=== PATIENT | male | born 1965 | race Caucasian/White ===

== ENCOUNTER 2023-11-08 15:10 | Inpatient (IN) | payer MEDICAID, OTHER ==
[~2023-11-08] VITALS: Ht 185.4 cm; Wt 92.4 kg
[~2023-11-08 15:10] MED LIST: etomidate 2mg/ml inj. ONE; rocuronium 10mg/ml inj IV ONE
[2023-11-08] MEDS ORDERED: potassium Cl 20 mEq SR tablet PO PRN (17:00)
[2023-11-08] MEDS ORDERED: magnesium sulf-water 4G/100mL 100 ML IV PRN (17:00)
[2023-11-08] MEDS ORDERED: potassium Cl 40MEQ/1/2NS 520ml 520 ML IV PRN (17:00)
[2023-11-08] MEDS ORDERED: magnesium Cl slow-release 64mg tablet PO PRN (17:00)
[2023-11-08] MEDS ORDERED: magnesium hydroxide 30ml (MOM) UD suspension PO PRN (17:00)
[2023-11-08] MEDS ORDERED: mag hydrox/Alum hydrox/simeth 30ml oral suspension PO PRN (17:00)
[2023-11-08] MEDS ORDERED: magnesium sulf-water 2g/50mL 50 ML IV PRN (17:00)
[2023-11-08] MEDS ORDERED: acetaminophen 325mg tablet PO PRN (17:00)
[2023-11-08] MEDS ORDERED: GABA300C PO ×2 (17:15→17:19)
[2023-11-08] MEDS ORDERED: FLO0.4C PO (17:15)
[2023-11-08] MEDS ORDERED: GABA600T PO (17:19)
[2023-11-08 17:24] LABS: POTASSIUM 4.1 MMOL/L (3.5-5.1)
[2023-11-08] MEDS: heparin 10,000 units/1 ML INJ IV ONE (17:41)
[2023-11-08] MEDS: heparin 25,000 UNIT/250ml bag 250 ML IV PRN (17:41)
[2023-11-08] MEDS: vancomycin/NS 1 GM ADD-VANTAGE 250 ML X 1 DOSE IV ONE (18:10)
[2023-11-08 18:51] LABS: ABG BASE EXCESS 3.7 mmol/L (-2.0-3.0); ABG HCO3 28.2 mmol/L (21.0-28.0); ABG OXYGEN SATURATION 86.4 % (94.0-98.0); ABG PCO2 (T) 41.7 mmHg (35.0-48.0); ABG PH (T) 7.445 (7.350-7.450); ABG PO2 (T) 52.9 mmHg (83.0-108.0); ALLEN'S TEST POSITIVE; FCOHb 0.3 % (0.5-1.5); FHHb 13.5 % (0.0-5.0); FLOW 5 L/min; FMetHb 0.3 % (0.0-1.5); FO2Hb 85.9 % (94.0-98.0); MODE NASAL CANNULA; PATIENT TEMPERATURE 36.7; TOTAL HEMOGLOBIN 9.3 G/dl (13.5-17.5)
[2023-11-08] MEDS: MESSAGE TO NURSING IV ONE ×2 (19:00→21:40)
[2023-11-08 19:22] VITALS: PULSE 96; RESP 22; O2SAT 98
[2023-11-08 19:27] VITALS: PULSE 96; RESP 22; O2SAT 98
[2023-11-08] MEDS: ipratropium/albuterol 3ml nebule NEB PRN (19:28)
[2023-11-08 19:30] VITALS: PULSE 98; RESP 21
[2023-11-08 19:37] VITALS: BP 116/70; PULSE 91; RESP 22; TEMP 98.8; O2SAT 96
[2023-11-08] MEDS: normal saline 1000ml 1,000 ML IV SCH (19:40)
[2023-11-08] MEDS ORDERED: diphenhydrAMINE 25 MG/10 ML UD oral solution PO ONE (20:00)
[2023-11-08] MEDS: diphenhydrAMINE 25mg capsule PO ONE (20:29)
[2023-11-08 21:00] LABS: ALANINE AMINOTRANSFERASE 391 U/L (12-78); ALBUMIN 1.8 G/DL (3.4-5.0); ALBUMIN/GLOBULIN RATIO 0.5 (1.1-1.5); ALKALINE PHOSPHATASE 127 IU/L (46-116); ASPARTATE AMINO TRANSFERASE 396 U/L (10-37); BILIRUBIN,TOTAL 0.5 MG/DL (0.1-1.0); BLOOD UREA NITROGEN 17 MG/DL (7-18); BUN/CREATININE RATIO 25.4 (10.0-20.0); CALCIUM 8.5 MG/DL (8.5-10.1); CREATININE 0.67 MG/DL (0.60-1.10); GLUCOSE 247 MG/DL (70-104); TOTAL CARBON DIOXIDE 24.4 MMOL/L (24-32); TOTAL PROTEIN 5.5 G/DL (6.4-8.2); eCRCL 133 ML/MIN; eGFR > 90 ML/MIN
[2023-11-08 21:14] LABS: ANION GAP 12 (8-16); CHLORIDE 99 MMOL/L (99-107); SODIUM 135 MMOL/L (135-145)
[2023-11-08] MEDS: aspirin 81mg tab.chew PO ONE (21:44)
[2023-11-08] MEDS: piperacillin/tazo 3.375gm/50ml 50 ML IV SCH (21:44)
[2023-11-08 22:00] VITALS: BP 101/58; PULSE 92; RESP 25; TEMP 98.2; O2SAT 93
[2023-11-08] MEDS ORDERED: DEXTROSE 15 GM of carb/4 tabs (each vial/BOTTLE has 4 tablets) PO PRN ×2 (22:00)
[2023-11-08] MEDS ORDERED: dextrose 50%-water 50ml dispensing syringe IV PRN ×2 (22:00)
[2023-11-08] MEDS ORDERED: glucagon, human recombinant 1mg kit SUBCUT PRN (22:00)
[2023-11-08] MEDS: K and/or MAG REPLACEMENT MC SCH (22:49)
[2023-11-08] MEDS ORDERED: piperacillin/tazo 3.375gm/50ml 50 ML IV SCH (23:11)
[2023-11-08] MEDS: insulin glargine (Lantus) pen - multi-dose SQ SCH (23:45)
[2023-11-08 23:53] VITALS: PULSE 84; RESP 18; O2SAT 99
[2023-11-09] VITALS (19 sets, daily range): BP systolic 104–147; BP diastolic 60–124; PULSE 77–112; RESP 17–31; TEMP 97.3–98.4; O2SAT 88–99
[2023-11-09] MEDS: morphine 2 MG/ML inj. syringe IV PRN (04:22)
[2023-11-09 05:37] LABS: BASOPHILS % (AUTO) 0.5 % (0-1); EOSINOPHILS % (AUTO) 1.6 % (0-6); HEMATOCRIT 23.9 % (42.0-52.0); LYMPHOCYTES # (AUTO) 0.1 X10'3 (1.1-4.8); LYMPHOCYTES % (AUTO) 7.4 % (21-51); MEAN CORPUSCULAR HEMOGLOBIN 30.6 PG (27.0-31.0); MEAN CORPUSCULAR HGB CONC 33.5 g/dL (33.0-36.5); MEAN CORPUSCULAR VOLUME 91.4 FL (78-98); MEAN PLATELET VOLUME 7.9 FL (7.4-10.4); MONOCYTES # (AUTO) 0.2 X10'3 (0-0.9); MONOCYTES % (AUTO) 12.3 % (2-12); NEUTROPHILS # (AUTO) 1.1 X10'3 (1.8-7.7); NEUTROPHILS % (AUTO) 78.2 % (42-75); PLATELET COUNT 136 X10'3 (140-440); RED BLOOD COUNT 2.62 X10'6 (4.70-6.10); RED CELL DISTRIBUTION WIDTH 19.2 % (11.5-14.5); WHITE BLOOD COUNT 1.4 X10'3 (4.5-11.0)
[2023-11-09 05:42] LABS: INR 1.2 INR; PROTHROMBIN TIME 12.7 SECONDS (9.0-12.0)
[2023-11-09 05:56] LABS: ALANINE AMINOTRANSFERASE 345 U/L (12-78); ALBUMIN 1.6 G/DL (3.4-5.0); ALBUMIN/GLOBULIN RATIO 0.4 (1.1-1.5); ALKALINE PHOSPHATASE 127 IU/L (46-116); ANION GAP 2 (8-16); ASPARTATE AMINO TRANSFERASE 200 U/L (10-37); BILIRUBIN,TOTAL 0.4 MG/DL (0.1-1.0); BLOOD UREA NITROGEN 10 MG/DL (7-18); BUN/CREATININE RATIO 18.5 (10.0-20.0); CALCIUM 8.2 MG/DL (8.5-10.1); CHLORIDE 103 MMOL/L (99-107); CHOL/HDL RATIO 3.9 (0.00-4.99); CHOLESTEROL 106 MG/DL (0-200); CREATININE 0.54 MG/DL (0.60-1.10); GLUCOSE 245 MG/DL (70-104); HDL CHOLESTEROL 27 MG/DL (35-60); LDL CHOLESTEROL 50 MG/DL (50-100); MAGNESIUM 1.9 MG/DL (1.5-2.4); POTASSIUM 3.8 MMOL/L (3.5-5.1); SODIUM 137 MMOL/L (135-145); THYROID STIMULATING HORMONE 0.95 ulU/ml (0.34-4.50); TOTAL CARBON DIOXIDE 32.1 MMOL/L (24-32); TOTAL PROTEIN 5.5 G/DL (6.4-8.2); TRIGLYCERIDES 87 MG/DL (20-135); eCRCL 164 ML/MIN; eGFR > 90 ML/MIN
[2023-11-09] MEDS: heparin 10,000 units/1 ML INJ IV PRN (05:59)
[2023-11-09] MEDS: MESSAGE TO NURSING IV ONE ×3 (06:02→21:50)
[2023-11-09 06:05] LABS: HEMOGLOBIN A1C 8.9 % (4.5-6.2)
[2023-11-09] MEDS: piperacillin/tazo 3.375gm/50ml 50 ML IV SCH (06:49)
[2023-11-09] MEDS: INSULIN LISPRO 100 UNIT/ML INSULN.PEN MULTI-DOSE SQ SCH (08:15)
[2023-11-09] MEDS: metoprolol succinate 25mg (24-HOUR) SR. Tablet PO SCH (08:20)
[2023-11-09] MEDS: atorvastatin 20mg tablet PO SCH (08:20)
[2023-11-09 08:46] LABS: ANISOCYTOSIS 2+; PLATELET ESTIMATE DECREASED; TOTAL CELLS COUNTED 100
[2023-11-09 08:47] LABS: ELLIPTOCYTES FEW; HYPOCHROMASIA 1+; STOMATOCYTES FEW; TEAR DROP CELLS FEW; TOXIC GRANULATION 1+
[2023-11-09] MEDS: gabapentin 300mg capsule PO SCH ×2 (09:06→20:11)
[2023-11-09] MEDS: ringers solution, lacted 1,000 ML IV SCH ×3 (11:05→20:36)
[2023-11-09] MEDS ORDERED: vancomycin/NS 1 GM ADD-VANTAGE 250 ML IV SCH (13:00)
[2023-11-09] MEDS: tamsulosin 0.4mg capsule PO SCH (20:10)
[2023-11-09] MEDS: insulin glargine (Lantus) pen - multi-dose SQ SCH (20:30)
[2023-11-10] VITALS (20 sets, daily range): BP systolic 121–126; BP diastolic 61–65; PULSE 88–115; RESP 20–34; TEMP 98.5–98.8; O2SAT 91–99
[2023-11-10] MEDS: clindamycin-Cleocin 900mg/D5W 50 ML IV SCH (01:05)
[2023-11-10] MEDS ORDERED: morphine 2 MG/ML inj. syringe IV PRN (02:45)
[2023-11-10] MEDS ORDERED: HYDROcodone/acetaminophen 5mg/325mg tablet PO PRN (02:45)
[2023-11-10] MEDS: LORazepam 1 MG tablet PO ONE (03:06)
[2023-11-10] MEDS: furosemide 20 MG/2 ML vial IV ONE (03:15)
[2023-11-10 05:08] LABS: BASOPHILS % (AUTO) 0.3 % (0-1); EOSINOPHILS % (AUTO) 1.5 % (0-6); HEMATOCRIT 22.3 % (42.0-52.0); HEMOGLOBIN 7.5 g/dl (14.0-17.9); LYMPHOCYTES # (AUTO) 0.1 X10'3 (1.1-4.8); LYMPHOCYTES % (AUTO) 4.6 % (21-51); MEAN CORPUSCULAR HEMOGLOBIN 30.9 PG (27.0-31.0); MEAN CORPUSCULAR HGB CONC 33.8 g/dL (33.0-36.5); MEAN CORPUSCULAR VOLUME 91.5 FL (78-98); MEAN PLATELET VOLUME 7.7 FL (7.4-10.4); MONOCYTES # (AUTO) 0.2 X10'3 (0-0.9); MONOCYTES % (AUTO) 15.6 % (2-12); NEUTROPHILS # (AUTO) 1.2 X10'3 (1.8-7.7); PLATELET COUNT 151 X10'3 (140-440); RED BLOOD COUNT 2.44 X10'6 (4.70-6.10); RED CELL DISTRIBUTION WIDTH 19.1 % (11.5-14.5); WHITE BLOOD COUNT 1.5 X10'3 (4.5-11.0)
[2023-11-10 05:14] LABS: INR 1.3 INR
[2023-11-10 05:17] LABS: ALANINE AMINOTRANSFERASE 217 U/L (12-78); ALBUMIN 1.5 G/DL (3.4-5.0); ALBUMIN/GLOBULIN RATIO 0.4 (1.1-1.5); ALKALINE PHOSPHATASE 140 IU/L (46-116); ANION GAP 2 (8-16); ASPARTATE AMINO TRANSFERASE 71 U/L (10-37); BILIRUBIN,TOTAL 0.4 MG/DL (0.1-1.0); BLOOD UREA NITROGEN 6 MG/DL (7-18); BUN/CREATININE RATIO 10.9 (10.0-20.0); CALCIUM 8.2 MG/DL (8.5-10.1); CHLORIDE 97 MMOL/L (99-107); CREATININE 0.55 MG/DL (0.60-1.10); GLUCOSE 230 MG/DL (70-104); MAGNESIUM 1.5 MG/DL (1.5-2.4); PHOSPHORUS 3.2 MG/DL (2.3-4.5); POTASSIUM 3.4 MMOL/L (3.5-5.1); SODIUM 135 MMOL/L (135-145); TOTAL CARBON DIOXIDE 36.1 MMOL/L (24-32); TOTAL PROTEIN 5.1 G/DL (6.4-8.2); eCRCL 161 ML/MIN; eGFR > 90 ML/MIN
[2023-11-10] MEDS: MESSAGE TO NURSING IV ONE (05:44)
[2023-11-10 06:53] LABS: ANISOCYTOSIS 2+; PLATELET ESTIMATE NORMAL; TOTAL CELLS COUNTED 100
[2023-11-10 06:54] LABS: TEAR DROP CELLS FEW
[2023-11-10] MEDS: sod chloride 0.9% 10ml flush syringe IV SCH (08:00)
[2023-11-10 08:21] LABS: ABG BASE EXCESS 10.4 mmol/L (-2.0-3.0); ABG HCO3 35.4 mmol/L (21.0-28.0); ABG OXYGEN SATURATION 95.4 % (94.0-98.0); ABG PCO2 (T) 50.8 mmHg (35.0-48.0); ABG PH (T) 7.461 (7.350-7.450); ABG PO2 (T) 76.8 mmHg (83.0-108.0); ALLEN'S TEST POSITIVE; FCOHb 0.6 % (0.5-1.5); FHHb 4.6 % (0.0-5.0); FLOW 14 L/min; FMetHb 0.3 % (0.0-1.5); FO2Hb 94.5 % (94.0-98.0); MODE HIGH FLOW; TOTAL HEMOGLOBIN 8.1 G/dl (13.5-17.5)
[2023-11-10] MEDS: potassium Cl 20 mEq SR tablet PO PRN (08:26)
[2023-11-10 09:26] LABS: BILIRUBIN,URINE NEGATIVE (Neg); CLARITY,URINE SLIGHTLY CLOUDY (Clear); COLOR,URINE YELLOW (Yellow); GLUCOSE, URINE >=1000 mg/dl (Neg); KETONES,URINE TRACE mg/dl (Neg); LEUKOCYTE ESTERASE ,URINE NEGATIVE (Neg); NITRITES, URINE NEGATIVE (Neg); OCCULT BLOOD,URINE NEGATIVE (Neg); PROTEIN,URINE NEGATIVE (Neg); UROBILINOGEN,URINE 0.2 E.U/dL (0.2-1.0)
[2023-11-10 09:43] LABS: UA COLLECTION TYPE NON-SPECIFIED
[2023-11-10 09:44] LABS: SQUAMOUS EPITHELIAL CELL,UR FEW /LPF (FEW); URINE AMPHETAMINE SCREEN NEGATIVE (Neg); URINE BARBITUATE SCREEN NEGATIVE (Neg); URINE BENZODIAZEPINES SCREEN NEGATIVE (Neg); URINE CANNABINOID SCREEN NEGATIVE (Neg); URINE COCAINE SCREEN NEGATIVE (Neg); URINE METHADONE SCREEN NEGATIVE (Neg); URINE OPIATE SCREEN POSITIVE (Neg); URINE PHENCYCLIDINE SCREEN NEGATIVE (Neg)
[2023-11-10 09:45] LABS: BACTERIA,URINE FEW /HPF (Neg); RBC,URINE 0-2 /HPF (0-2); WBC,URINE 0-4 /HPF (0-4)
[2023-11-10 11:24] LABS: CYTOMEGALOVIRUS AB, IGG <0.60 U/mL (0.00-0.59); CYTOMEGALOVIRUS AB, IGM <30.0 AU/mL (0.0-29.9)
[2023-11-10] MEDS: guaiFENesin ER 600mg tablet PO SCH (11:52)
[2023-11-10] MEDS ORDERED: VANCOMYCIN LEVEL IV ONE (12:30)
[2023-11-10] MEDS: ipratropium/albuterol 3ml nebule NEB SCH (13:22)
[2023-11-10] MEDS ORDERED: glucagon, human recombinant 1mg kit SUBCUT PRN (19:30)
[2023-11-10] MEDS ORDERED: DEXTROSE 15 GM of carb/4 tabs (each vial/BOTTLE has 4 tablets) PO PRN ×2 (19:30)
[2023-11-10] MEDS: ringers solution, lacted 1,000 ML IV SCH (19:40)
[2023-11-10] MEDS: insulin glargine (Lantus) pen - multi-dose SQ SCH (21:02)
[2023-11-10] MEDS: INSULIN LISPRO 100 UNIT/ML INSULN.PEN MULTI-DOSE SQ SCH (21:04)
[2023-11-11] VITALS (25 sets, daily range): BP systolic 103–123; BP diastolic 54–67; PULSE 71–109; RESP 16–35; TEMP 97.6–98.4; O2SAT 92–99
[2023-11-11 05:24] LABS: HBSAG SCREEN Negative (Negative); HEP A AB, IGM Negative (Negative); HEP B CORE AB, IGM Negative (Negative); HEPATITIS C VIRUS ANTIBODY Reactive (Non Reactive)
[2023-11-11 07:30] LABS: ALANINE AMINOTRANSFERASE 172 U/L (12-78); ALBUMIN 1.5 G/DL (3.4-5.0); ALBUMIN/GLOBULIN RATIO 0.4 (1.1-1.5); ALKALINE PHOSPHATASE 160 IU/L (46-116); ANION GAP 2 (8-16); ASPARTATE AMINO TRANSFERASE 70 U/L (10-37); BILIRUBIN,TOTAL 0.4 MG/DL (0.1-1.0); BLOOD UREA NITROGEN 6 MG/DL (7-18); BUN/CREATININE RATIO 13.3 (10.0-20.0); CALCIUM 8.8 MG/DL (8.5-10.1); CHLORIDE 100 MMOL/L (99-107); CREATININE 0.45 MG/DL (0.60-1.10); GLUCOSE 126 MG/DL (70-104); MAGNESIUM 2.2 MG/DL (1.5-2.4); PHOSPHORUS 2.9 MG/DL (2.3-4.5); POTASSIUM 3.9 MMOL/L (3.5-5.1); SODIUM 136 MMOL/L (135-145); TOTAL CARBON DIOXIDE 34.2 MMOL/L (24-32); TOTAL PROTEIN 5.7 G/DL (6.4-8.2); eCRCL 197 ML/MIN; eGFR > 90 ML/MIN
[2023-11-11 07:31] LABS: APTT 25 SECONDS (22-32); INR 1.3 INR; PROTHROMBIN TIME 13.3 SECONDS (9.0-12.0)
[2023-11-11] MEDS: heparin, porcine 5000 units/ml vial SQ SCH (09:13)
[2023-11-12] VITALS (25 sets, daily range): BP systolic 127–145; BP diastolic 60–89; PULSE 90–108; RESP 14–31; TEMP 97.4–98.7; O2SAT 90–99
[2023-11-12 07:13] LABS: ASPERGILLUS GALACTOMANNAN AG 0.03 Index (0.00-0.49)
[2023-11-12] MEDS: azithromycin/NS 500mg/250ml 250 ML IV SCH (11:52)
[2023-11-12] MEDS: cefepime 2g/NS 100ml ADVANTAGE 100 ML IV SCH (11:52)
[2023-11-12] MEDS: linezolid 600mg tablet PO SCH (12:20)
[2023-11-12 13:04] LABS: ALANINE AMINOTRANSFERASE 127 U/L (12-78); ALBUMIN 1.5 G/DL (3.4-5.0); ALBUMIN/GLOBULIN RATIO 0.4 (1.1-1.5); ALKALINE PHOSPHATASE 206 IU/L (46-116); ANION GAP 1 (8-16); ASPARTATE AMINO TRANSFERASE 64 U/L (10-37); BILIRUBIN,TOTAL 0.4 MG/DL (0.1-1.0); BLOOD UREA NITROGEN 8 MG/DL (7-18); BUN/CREATININE RATIO 19.5 (10.0-20.0); CALCIUM 8.8 MG/DL (8.5-10.1); CHLORIDE 98 MMOL/L (99-107); CREATININE 0.41 MG/DL (0.60-1.10); GLUCOSE 155 MG/DL (70-104); MAGNESIUM 1.9 MG/DL (1.5-2.4); PHOSPHORUS 3.4 MG/DL (2.3-4.5); POTASSIUM 4.1 MMOL/L (3.5-5.1); PRO BRAIN NATRIURETIC PEPTIDE 731 PG/ML (0-125); SODIUM 138 MMOL/L (135-145); TOTAL CARBON DIOXIDE 38.8 MMOL/L (24-32); TOTAL PROTEIN 5.6 G/DL (6.4-8.2); eCRCL 217 ML/MIN; eGFR > 90 ML/MIN
[2023-11-12 13:22] LABS: HIV ANTIBODY 1&2 RAPID NON-REACTIVE (Neg)
[2023-11-12 17:22] LABS: BASOPHILS % (AUTO) 0.8 % (0-1); EOSINOPHILS % (AUTO) 2.1 % (0-6); HEMATOCRIT 24.4 % (42.0-52.0); HEMOGLOBIN 7.9 g/dl (14.0-17.9); LYMPHOCYTES # (AUTO) 0.1 X10'3 (1.1-4.8); LYMPHOCYTES % (AUTO) 5.3 % (21-51); MEAN CORPUSCULAR HGB CONC 32.5 g/dL (33.0-36.5); MEAN CORPUSCULAR VOLUME 92.4 FL (78-98); MEAN PLATELET VOLUME 8.1 FL (7.4-10.4); MONOCYTES # (AUTO) 0.3 X10'3 (0-0.9); MONOCYTES % (AUTO) 16.3 % (2-12); NEUTROPHILS # (AUTO) 1.5 X10'3 (1.8-7.7); NEUTROPHILS % (AUTO) 75.5 % (42-75); PLATELET COUNT 169 X10'3 (140-440); RED BLOOD COUNT 2.65 X10'6 (4.70-6.10); RED CELL DISTRIBUTION WIDTH 18.6 % (11.5-14.5)
[2023-11-12 17:56] LABS: ANISOCYTOSIS 2+; PLATELET ESTIMATE NORMAL; TOTAL CELLS COUNTED 100
[2023-11-12 17:57] LABS: ELLIPTOCYTES FEW
[2023-11-12 17:58] LABS: STOMATOCYTES 1+
[2023-11-13] VITALS (28 sets, daily range): BP systolic 97–137; BP diastolic 43–64; PULSE 85–106; RESP 14–38; TEMP 97.4–98.2; O2SAT 90–99
[2023-11-13 07:30] LABS: BASOPHILS % (AUTO) 0.6 % (0-1); EOSINOPHILS % (AUTO) 1.4 % (0-6); HEMATOCRIT 25.1 % (42.0-52.0); HEMOGLOBIN 8.1 g/dl (14.0-17.9); LYMPHOCYTES # (AUTO) 0.1 X10'3 (1.1-4.8); LYMPHOCYTES % (AUTO) 5.3 % (21-51); MEAN CORPUSCULAR HGB CONC 32.5 g/dL (33.0-36.5); MEAN CORPUSCULAR VOLUME 92.4 FL (78-98); MEAN PLATELET VOLUME 7.4 FL (7.4-10.4); MONOCYTES # (AUTO) 0.4 X10'3 (0-0.9); MONOCYTES % (AUTO) 16.7 % (2-12); NEUTROPHILS # (AUTO) 1.7 X10'3 (1.8-7.7); PLATELET COUNT 182 X10'3 (140-440); RED BLOOD COUNT 2.71 X10'6 (4.70-6.10); RED CELL DISTRIBUTION WIDTH 18.1 % (11.5-14.5); WHITE BLOOD COUNT 2.2 X10'3 (4.5-11.0)
[2023-11-13 07:43] LABS: INR 1.3 INR; PROTHROMBIN TIME 13.4 SECONDS (9.0-12.0)
[2023-11-13 07:46] LABS: ALANINE AMINOTRANSFERASE 106 U/L (12-78); ALBUMIN 1.5 G/DL (3.4-5.0); ALBUMIN/GLOBULIN RATIO 0.4 (1.1-1.5); ALKALINE PHOSPHATASE 183 IU/L (46-116); ANION GAP 1 (8-16); ASPARTATE AMINO TRANSFERASE 47 U/L (10-37); BILIRUBIN,TOTAL 0.4 MG/DL (0.1-1.0); BLOOD UREA NITROGEN 8 MG/DL (7-18); BUN/CREATININE RATIO 18.6 (10.0-20.0); CALCIUM 8.9 MG/DL (8.5-10.1); CHLORIDE 101 MMOL/L (99-107); CREATININE 0.43 MG/DL (0.60-1.10); GLUCOSE 133 MG/DL (70-104); MAGNESIUM 1.7 MG/DL (1.5-2.4); PHOSPHORUS 2.9 MG/DL (2.3-4.5); POTASSIUM 4.5 MMOL/L (3.5-5.1); SODIUM 141 MMOL/L (135-145); TOTAL CARBON DIOXIDE 39.5 MMOL/L (24-32); TOTAL PROTEIN 5.6 G/DL (6.4-8.2); eCRCL 206 ML/MIN; eGFR > 90 ML/MIN
[2023-11-13 07:53] LABS: ANISOCYTOSIS 2+; PLATELET ESTIMATE NORMAL; TOTAL CELLS COUNTED 100
[2023-11-13] MEDS: apixaban 5mg tablet PO SCH ×2 (08:31→22:23)
[2023-11-13] MEDS: CefTRIAXone 2gm/D5W 50ml BAG 50 ML IV SCH (08:35)
[2023-11-13] MEDS: hydrocortisone sod succ/PF 100mg/2ml inj. IV SCH (09:01)
[2023-11-13] MEDS: apixaban 5mg tablet PO ONE (12:00)
[2023-11-13] MEDS: lactose-reduced food (Ensure Enlive) - 237ml bottle PO SCH (12:47)
[2023-11-13] MEDS: INSULIN LISPRO 100 UNIT/ML INSULN.PEN MULTI-DOSE SQ SCH (17:46)
[2023-11-14] VITALS (37 sets, daily range): BP systolic 89–170; BP diastolic 45–80; PULSE 58–102; RESP 18–40; TEMP 97.3–98.7; O2SAT 92–100
[2023-11-14 04:16] LABS: BASOPHILS % (AUTO) 0.2 % (0-1); EOSINOPHILS % (AUTO) 0.1 % (0-6); HEMATOCRIT 24.6 % (42.0-52.0); HEMOGLOBIN 7.9 g/dl (14.0-17.9); LYMPHOCYTES # (AUTO) 0.1 X10'3 (1.1-4.8); LYMPHOCYTES % (AUTO) 5.6 % (21-51); MEAN CORPUSCULAR HEMOGLOBIN 29.8 PG (27.0-31.0); MEAN CORPUSCULAR HGB CONC 32.2 g/dL (33.0-36.5); MEAN CORPUSCULAR VOLUME 92.4 FL (78-98); MEAN PLATELET VOLUME 7.7 FL (7.4-10.4); MONOCYTES # (AUTO) 0.3 X10'3 (0-0.9); MONOCYTES % (AUTO) 12.1 % (2-12); NEUTROPHILS # (AUTO) 1.9 X10'3 (1.8-7.7); PLATELET COUNT 215 X10'3 (140-440); RED BLOOD COUNT 2.66 X10'6 (4.70-6.10); RED CELL DISTRIBUTION WIDTH 17.8 % (11.5-14.5); WHITE BLOOD COUNT 2.4 X10'3 (4.5-11.0)
[2023-11-14 04:58] LABS: BANDS% (MANUAL) 5 % (0-10); LYMPHOCYTES % (MANUAL) 13 % (21-51); MONOCYTES % (MANUAL) 4 % (2-12); NEUTROPHILS % (MANUAL) 78 % (42-75); PLATELET ESTIMATE NORMAL; TOTAL CELLS COUNTED 100
[2023-11-14 06:38] LABS: ALANINE AMINOTRANSFERASE 86 U/L (12-78); ALBUMIN 1.6 G/DL (3.4-5.0); ALBUMIN/GLOBULIN RATIO 0.4 (1.1-1.5); ALKALINE PHOSPHATASE 160 IU/L (46-116); ANION GAP -1 (8-16); ASPARTATE AMINO TRANSFERASE 44 U/L (10-37); BILIRUBIN,TOTAL 0.3 MG/DL (0.1-1.0); BLOOD UREA NITROGEN 16 MG/DL (7-18); CALCIUM 9.3 MG/DL (8.5-10.1); CHLORIDE 101 MMOL/L (99-107); CREATININE 0.32 MG/DL (0.60-1.10); GLUCOSE 218 MG/DL (70-104); SODIUM 141 MMOL/L (135-145); TOTAL PROTEIN 5.9 G/DL (6.4-8.2); eCRCL 277 ML/MIN; eGFR > 90 ML/MIN
[2023-11-14 06:51] LABS: POTASSIUM 5.1 MMOL/L (3.5-5.1)
[2023-11-14 06:54] LABS: TOTAL CARBON DIOXIDE 40.6 MMOL/L (24-32)
[2023-11-14] MEDS: furosemide 40mg/4ml inj IV ONE (11:27)
[2023-11-14] MEDS: propofol 1000mg/100ml bottle 100 ML IV ONE (13:05)
[2023-11-14 14:02] LABS: ABG BASE EXCESS 16.8 mmol/L (-2.0-3.0); ABG OXYGEN SATURATION 99.7 % (94.0-98.0); ABG PCO2 (T) 62.3 mmHg (35.0-48.0); ABG PH (T) 7.457 (7.350-7.450); ABG PO2 (T) 267.7 mmHg (83.0-108.0); ALLEN'S TEST POSITIVE; FCOHb 0.3 % (0.5-1.5); FHHb 0.3 % (0.0-5.0); FMetHb 0.3 % (0.0-1.5); FO2Hb 99.1 % (94.0-98.0); MODE VENT - AC; PEEP 5 cm H2O; RESPIRATORY RATE 18 b/min; TIDAL VOLUME 475 mL; TOTAL HEMOGLOBIN 9.5 G/dl (13.5-17.5)
[2023-11-14] MEDS ORDERED: fentaNYL/PF 50MCG/1 ML 2ML syringe IV PRN (14:15)
[2023-11-14] MEDS: fentaNYL/PF 50MCG/1 ML 2ML syringe ONE (14:19)
[2023-11-14] MEDS: fentaNYL/PF 50MCG/1 ML 2ML syringe IV ONE (14:20)
[2023-11-14] MEDS: succinylcholine 20mg/ml inj IV ONE ×2 (14:21)
[2023-11-14] MEDS: propofol 1000mg/100ml bottle 100 ML IV SCH (14:34)
[2023-11-14] MEDS ORDERED: UNABLE TO OBTAIN (15:17)
[2023-11-14] MEDS: NORepinephrine 8mg/ 250ml NS 250 ML IV SCH (15:48)
[2023-11-14] MEDS: FENTANYL-0.9 % NACL/PF 100 ML IV SCH (15:49)
[2023-11-14] MEDS: ipratropium/albuterol 3ml nebule NEB SCH (15:50)
[2023-11-14] MEDS: COMMUNICATION ORDER 1 EA MISC MC ONE ×2 (17:49→20:12)
[2023-11-15] VITALS (39 sets, daily range): BP systolic 85–125; BP diastolic 42–62; PULSE 55–100; RESP 17–23; O2SAT 90–99
[2023-11-15] MEDS ORDERED: INSULIN LISPRO 100 UNIT/ML INSULN.PEN MULTI-DOSE SQ SCH (02:00)
[2023-11-15] MEDS: insulin regular, human U-100 3ml vial - multi-dose SQ SCH (02:13)
[2023-11-15 02:29] LABS: BASOPHILS % (AUTO) 0.4 % (0-1); EOSINOPHILS % (AUTO) 0.2 % (0-6); HEMATOCRIT 23.8 % (42.0-52.0); HEMOGLOBIN 7.8 g/dl (14.0-17.9); LYMPHOCYTES # (AUTO) 0.2 X10'3 (1.1-4.8); LYMPHOCYTES % (AUTO) 5.6 % (21-51); MEAN CORPUSCULAR HEMOGLOBIN 29.9 PG (27.0-31.0); MEAN CORPUSCULAR HGB CONC 32.6 g/dL (33.0-36.5); MEAN CORPUSCULAR VOLUME 91.8 FL (78-98); MEAN PLATELET VOLUME 7.8 FL (7.4-10.4); MONOCYTES # (AUTO) 0.6 X10'3 (0-0.9); MONOCYTES % (AUTO) 15.3 % (2-12); NEUTROPHILS # (AUTO) 2.9 X10'3 (1.8-7.7); NEUTROPHILS % (AUTO) 78.5 % (42-75); PLATELET COUNT 264 X10'3 (140-440); RED CELL DISTRIBUTION WIDTH 17.8 % (11.5-14.5); WHITE BLOOD COUNT 3.7 X10'3 (4.5-11.0)
[2023-11-15 02:45] LABS: ALANINE AMINOTRANSFERASE 72 U/L (12-78); ALBUMIN 1.6 G/DL (3.4-5.0); ALBUMIN/GLOBULIN RATIO 0.4 (1.1-1.5); ALKALINE PHOSPHATASE 126 IU/L (46-116); ANION GAP 2 (8-16); ASPARTATE AMINO TRANSFERASE 28 U/L (10-37); BILIRUBIN,TOTAL 0.3 MG/DL (0.1-1.0); BLOOD UREA NITROGEN 18 MG/DL (7-18); BUN/CREATININE RATIO 46.2 (10.0-20.0); CALCIUM 8.7 MG/DL (8.5-10.1); CHLORIDE 102 MMOL/L (99-107); CREATININE 0.39 MG/DL (0.60-1.10); GLUCOSE 289 MG/DL (70-104); MAGNESIUM 1.9 MG/DL (1.5-2.4); PHOSPHORUS 2.3 MG/DL (2.3-4.5); POTASSIUM 3.6 MMOL/L (3.5-5.1); PREALBUMIN 10.3 MG/DL (19-36); SODIUM 145 MMOL/L (135-145); TOTAL PROTEIN 5.3 G/DL (6.4-8.2); TRIGLYCERIDES 98 MG/DL (20-135); eCRCL 228 ML/MIN; eGFR > 90 ML/MIN
[2023-11-15 02:52] LABS: TOTAL CARBON DIOXIDE 41.5 MMOL/L (24-32)
[2023-11-15 03:34] LABS: ABG BASE EXCESS 15.2 mmol/L (-2.0-3.0); ABG HCO3 39.6 mmol/L (21.0-28.0); ABG OXYGEN SATURATION 98.4 % (94.0-98.0); ABG PCO2 (T) 48.4 mmHg (35.0-48.0); ABG PH (T) 7.529 (7.350-7.450); ABG PO2 (T) 105.9 mmHg (83.0-108.0); ALLEN'S TEST Modified; FCOHb 0.7 % (0.5-1.5); FHHb 1.6 % (0.0-5.0); FMetHb 0.3 % (0.0-1.5); FO2Hb 97.4 % (94.0-98.0); MODE PRVC; PATIENT TEMPERATURE 36.6; PEEP 5 cm H2O; RESPIRATORY RATE 18 b/min; TIDAL VOLUME 475 mL; TOTAL HEMOGLOBIN 8.7 G/dl (13.5-17.5)
[2023-11-15] MEDS: micafungin inj 100 MG in normal saline 100ml IV soln 100 ML IV SCH (10:52)
[2023-11-15] MEDS: insulin regular, human U-100 10ml vial - multi-dose SQ SCH (10:57)
[2023-11-15] MEDS ORDERED: DEXTROSE 15 GM of carb/4 tabs (each vial/BOTTLE has 4 tablets) OGT PRN ×2 (11:58)
[2023-11-15] MEDS ORDERED: GABAPENTIN 300 MG/6 ML oral SOLUTION cup PO SCH (11:59)
[2023-11-15] MEDS ORDERED: mag hydrox/Alum hydrox/simeth 30ml oral suspension OGT PRN (12:03)
[2023-11-15] MEDS: pantoprazole 40 MG vial IV SCH (12:50)
[2023-11-15] MEDS: methylPREDNISolone sod succ/PF 40mg inj. IV SCH (13:17)
[2023-11-15] MEDS ORDERED: dextrose 50%-water 50ml dispensing syringe IV PRN (18:50)
[2023-11-15] MEDS: Insulin Reg/NS 100units/100mL 100 ML IV SCH (19:37)
[2023-11-15] MEDS: mineral oil/petrolatum ophthal oint EACHEYE SCH (20:00)
[2023-11-15] MEDS: INSULIN LISPRO 100 UNIT/ML INSULN.PEN MULTI-DOSE SQ SCH (20:26)
[2023-11-15] MEDS: GABAPENTIN 300 MG/6 ML oral SOLUTION cup OGT SCH (22:22)
[2023-11-15] MEDS: apixaban 5mg tablet OGT SCH (23:32)
[2023-11-16] VITALS (43 sets, daily range): BP systolic 100–137; BP diastolic 47–72; PULSE 5–93; RESP 15–19; O2SAT 88–99
[2023-11-16] MEDS: INSULIN LISPRO 100 UNIT/ML INSULN.PEN MULTI-DOSE SQ PRN (02:33)
[2023-11-16 02:35] LABS: BASOPHILS % (AUTO) 0 % (0-1); EOSINOPHILS % (AUTO) 0 % (0-6); HEMOGLOBIN 7.9 g/dl (14.0-17.9); LYMPHOCYTES # (AUTO) 0.2 X10'3 (1.1-4.8); LYMPHOCYTES % (AUTO) 3.4 % (21-51); MEAN CORPUSCULAR HEMOGLOBIN 29.4 PG (27.0-31.0); MEAN CORPUSCULAR HGB CONC 31.8 g/dL (33.0-36.5); MEAN CORPUSCULAR VOLUME 92.5 FL (78-98); MEAN PLATELET VOLUME 7.4 FL (7.4-10.4); MONOCYTES # (AUTO) 0.3 X10'3 (0-0.9); MONOCYTES % (AUTO) 7.3 % (2-12); NEUTROPHILS # (AUTO) 4.3 X10'3 (1.8-7.7); NEUTROPHILS % (AUTO) 89.3 % (42-75); PLATELET COUNT 297 X10'3 (140-440); WHITE BLOOD COUNT 4.8 X10'3 (4.5-11.0)
[2023-11-16 02:47] LABS: ALANINE AMINOTRANSFERASE 56 U/L (12-78); ALBUMIN 1.7 G/DL (3.4-5.0); ALBUMIN/GLOBULIN RATIO 0.5 (1.1-1.5); ALKALINE PHOSPHATASE 122 IU/L (46-116); ANION GAP 5 (8-16); ASPARTATE AMINO TRANSFERASE 21 U/L (10-37); BILIRUBIN,TOTAL 0.2 MG/DL (0.1-1.0); BLOOD UREA NITROGEN 22 MG/DL (7-18); BUN/CREATININE RATIO 51.2 (10.0-20.0); CALCIUM 8.5 MG/DL (8.5-10.1); CHLORIDE 106 MMOL/L (99-107); CREATININE 0.43 MG/DL (0.60-1.10); GLUCOSE 259 MG/DL (70-104); PHOSPHORUS 2.7 MG/DL (2.3-4.5); POTASSIUM 3.8 MMOL/L (3.5-5.1); SODIUM 150 MMOL/L (135-145); TOTAL CARBON DIOXIDE 39.1 MMOL/L (24-32); TOTAL PROTEIN 5.3 G/DL (6.4-8.2); eCRCL 206 ML/MIN; eGFR > 90 ML/MIN
[2023-11-16 03:47] LABS: ABG BASE EXCESS 13.4 mmol/L (-2.0-3.0); ABG OXYGEN SATURATION 98.2 % (94.0-98.0); ABG PCO2 (T) 48.9 mmHg (35.0-48.0); ABG PH (T) 7.508 (7.350-7.450); ABG PO2 (T) 108.8 mmHg (83.0-108.0); ALLEN'S TEST Modified; FCOHb 0.5 % (0.5-1.5); FHHb 1.8 % (0.0-5.0); FMetHb 0.3 % (0.0-1.5); FO2Hb 97.4 % (94.0-98.0); MODE PRVC; PATIENT TEMPERATURE 36.9; PEEP 5 cm H2O; RESPIRATORY RATE 18 b/min; TIDAL VOLUME 475 mL; TOTAL HEMOGLOBIN 8.7 G/dl (13.5-17.5)
[2023-11-16] MEDS: atorvastatin 20mg tablet OGT SCH (08:33)
[2023-11-16] MEDS: GABAPENTIN 300 MG/6 ML oral SOLUTION cup OGT SCH (08:36)
[2023-11-17] VITALS (48 sets, daily range): BP systolic 95–116; BP diastolic 45–66; PULSE 56–112; RESP 18–31; O2SAT 88–98
[2023-11-17 02:50] LABS: BASOPHILS % (AUTO) 0.1 % (0-1); EOSINOPHILS % (AUTO) 0 % (0-6); HEMATOCRIT 23.3 % (42.0-52.0); HEMOGLOBIN 7.5 g/dl (14.0-17.9); LYMPHOCYTES # (AUTO) 0.2 X10'3 (1.1-4.8); LYMPHOCYTES % (AUTO) 2.4 % (21-51); MEAN CORPUSCULAR HEMOGLOBIN 29.9 PG (27.0-31.0); MEAN CORPUSCULAR HGB CONC 32.1 g/dL (33.0-36.5); MONOCYTES # (AUTO) 0.6 X10'3 (0-0.9); MONOCYTES % (AUTO) 6.7 % (2-12); NEUTROPHILS # (AUTO) 7.7 X10'3 (1.8-7.7); NEUTROPHILS % (AUTO) 90.8 % (42-75); PLATELET COUNT 307 X10'3 (140-440); RED BLOOD COUNT 2.51 X10'6 (4.70-6.10); RED CELL DISTRIBUTION WIDTH 18.5 % (11.5-14.5); WHITE BLOOD COUNT 8.5 X10'3 (4.5-11.0)
[2023-11-17 03:12] LABS: % IRON SATURATION 29 % (11-46); IRON 49 UG/DL (53-167); TOTAL IRON BINDING CAPACITY 170 UG/DL (259-388)
[2023-11-17 03:50] LABS: ALANINE AMINOTRANSFERASE 46 U/L (12-78); ALBUMIN 1.7 G/DL (3.4-5.0); ALBUMIN/GLOBULIN RATIO 0.5 (1.1-1.5); ALKALINE PHOSPHATASE 101 IU/L (46-116); ANION GAP 2 (8-16); ASPARTATE AMINO TRANSFERASE 19 U/L (10-37); BILIRUBIN,TOTAL 0.2 MG/DL (0.1-1.0); BLOOD UREA NITROGEN 28 MG/DL (7-18); BUN/CREATININE RATIO 71.8 (10.0-20.0); CALCIUM 8.6 MG/DL (8.5-10.1); CHLORIDE 106 MMOL/L (99-107); CREATININE 0.39 MG/DL (0.60-1.10); GLUCOSE 229 MG/DL (70-104); MAGNESIUM 2.2 MG/DL (1.5-2.4); PHOSPHORUS 3.2 MG/DL (2.3-4.5); POTASSIUM 3.8 MMOL/L (3.5-5.1); SODIUM 144 MMOL/L (135-145); TOTAL CARBON DIOXIDE 36.3 MMOL/L (24-32); TOTAL PROTEIN 4.8 G/DL (6.4-8.2); eCRCL 228 ML/MIN; eGFR > 90 ML/MIN
[2023-11-17 03:52] LABS: FERRITIN 1462 NG/ML (26-388)
[2023-11-17 04:24] LABS: ABG HCO3 34.8 mmol/L (21.0-28.0); ABG OXYGEN SATURATION 96.6 % (94.0-98.0); ABG PCO2 (T) 43.6 mmHg (35.0-48.0); ABG PH (T) 7.521 (7.350-7.450); ABG PO2 (T) 87.3 mmHg (83.0-108.0); ALLEN'S TEST Modified; FCOHb 0.3 % (0.5-1.5); FHHb 3.4 % (0.0-5.0); FMetHb 0.3 % (0.0-1.5); MODE CMV PRVC IT 0.9; PATIENT TEMPERATURE 37.2; PEEP 5 cm H2O; RESPIRATORY RATE 18 b/min; TIDAL VOLUME 475 mL; TOTAL HEMOGLOBIN 8.5 G/dl (13.5-17.5)
[2023-11-17] MEDS: magnesium hydroxide 30ml (MOM) UD suspension OGT PRN (05:14)
[2023-11-17] MEDS: fluconazole-Diflucan 200mg/NS 100 ML IV SCH (08:08)
[2023-11-17] MEDS: bisacodyl 10mg suppository rectal RC PRN (11:28)
[2023-11-17] MEDS ORDERED: SENN-263 PO (12:01)
[2023-11-17] MEDS ORDERED: ACET-890 PO (12:03)
[2023-11-17] MEDS ORDERED: IBUP-2417 PO (12:03)
[2023-11-18] VITALS (47 sets, daily range): BP systolic 87–170; BP diastolic 40–93; PULSE 60–116; RESP 16–31; O2SAT 87–98
[2023-11-18 02:56] LABS: ABG BASE EXCESS 8.2 mmol/L (-2.0-3.0); ABG HCO3 32.5 mmol/L (21.0-28.0); ABG OXYGEN SATURATION 97.6 % (94.0-98.0); ABG PCO2 (T) 43.4 mmHg (35.0-48.0); ABG PO2 (T) 94.6 mmHg (83.0-108.0); ALLEN'S TEST Modified; FCOHb 0.6 % (0.5-1.5); FHHb 2.4 % (0.0-5.0); FMetHb 0.3 % (0.0-1.5); FO2Hb 96.7 % (94.0-98.0); PATIENT TEMPERATURE 36.2; PEEP 5 cm H2O; RESPIRATORY RATE 18 b/min; TIDAL VOLUME 475 mL; TOTAL HEMOGLOBIN 8.5 G/dl (13.5-17.5)
[2023-11-18 03:27] LABS: BASOPHILS % (AUTO) 0.1 % (0-1); EOSINOPHILS % (AUTO) 0 % (0-6); HEMATOCRIT 24.1 % (42.0-52.0); HEMOGLOBIN 7.8 g/dl (14.0-17.9); LYMPHOCYTES # (AUTO) 0.3 X10'3 (1.1-4.8); MEAN CORPUSCULAR HEMOGLOBIN 30.3 PG (27.0-31.0); MEAN CORPUSCULAR HGB CONC 32.5 g/dL (33.0-36.5); MEAN CORPUSCULAR VOLUME 93.3 FL (78-98); MEAN PLATELET VOLUME 7.6 FL (7.4-10.4); MONOCYTES # (AUTO) 0.4 X10'3 (0-0.9); MONOCYTES % (AUTO) 3.6 % (2-12); NEUTROPHILS # (AUTO) 9.4 X10'3 (1.8-7.7); NEUTROPHILS % (AUTO) 93.3 % (42-75); PLATELET COUNT 317 X10'3 (140-440); RED BLOOD COUNT 2.58 X10'6 (4.70-6.10); RED CELL DISTRIBUTION WIDTH 18.7 % (11.5-14.5)
[2023-11-18 03:40] LABS: ALANINE AMINOTRANSFERASE 41 U/L (12-78); ALBUMIN 1.7 G/DL (3.4-5.0); ALBUMIN/GLOBULIN RATIO 0.6 (1.1-1.5); ALKALINE PHOSPHATASE 94 IU/L (46-116); ANION GAP 2 (8-16); ASPARTATE AMINO TRANSFERASE 22 U/L (10-37); BILIRUBIN,TOTAL 0.2 MG/DL (0.1-1.0); BLOOD UREA NITROGEN 29 MG/DL (7-18); CALCIUM 8.2 MG/DL (8.5-10.1); CHLORIDE 105 MMOL/L (99-107); CREATININE 0.42 MG/DL (0.60-1.10); GLUCOSE 208 MG/DL (70-104); MAGNESIUM 2.2 MG/DL (1.5-2.4); POTASSIUM 4.5 MMOL/L (3.5-5.1); SODIUM 142 MMOL/L (135-145); TOTAL CARBON DIOXIDE 34.8 MMOL/L (24-32); TOTAL PROTEIN 4.7 G/DL (6.4-8.2); eCRCL 211 ML/MIN; eGFR > 90 ML/MIN
[2023-11-18 04:31] LABS: ANISOCYTOSIS 2+; PLATELET ESTIMATE NORMAL; POLYCHROMASIA FEW; SCHISTOCYTES FEW; STOMATOCYTES FEW
[2023-11-18 04:32] LABS: TEAR DROP CELLS FEW
[2023-11-18] MEDS: micafungin inj 100 MG in normal saline 100ml IV soln 100 ML IV SCH (07:20)
[2023-11-18] MEDS: predniSONE 20 mg tablet PO SCH (12:20)
[2023-11-18 17:10] LABS: COCCIDIOIDES CF ANTIBODY <1:2 (<1:2)
[2023-11-19] VITALS (47 sets, daily range): BP systolic 78–156; BP diastolic 45–85; PULSE 53–98; RESP 16–33; O2SAT 92–99
[2023-11-19 02:17] LABS: BASOPHILS % (AUTO) 0.1 % (0-1); EOSINOPHILS % (AUTO) 0 % (0-6); HEMATOCRIT 23.4 % (42.0-52.0); HEMOGLOBIN 7.5 g/dl (14.0-17.9); LYMPHOCYTES # (AUTO) 0.4 X10'3 (1.1-4.8); LYMPHOCYTES % (AUTO) 3.7 % (21-51); MEAN CORPUSCULAR VOLUME 93.7 FL (78-98); MEAN PLATELET VOLUME 7.3 FL (7.4-10.4); MONOCYTES # (AUTO) 0.8 X10'3 (0-0.9); MONOCYTES % (AUTO) 7.8 % (2-12); NEUTROPHILS # (AUTO) 8.6 X10'3 (1.8-7.7); NEUTROPHILS % (AUTO) 88.4 % (42-75); PLATELET COUNT 319 X10'3 (140-440); WHITE BLOOD COUNT 9.7 X10'3 (4.5-11.0)
[2023-11-19] MEDS: NORepinephrine 8mg/ 250ml NS 250 ML IV SCH (02:17)
[2023-11-19 02:32] LABS: ALANINE AMINOTRANSFERASE 36 U/L (12-78); ALBUMIN 1.6 G/DL (3.4-5.0); ALBUMIN/GLOBULIN RATIO 0.6 (1.1-1.5); ALKALINE PHOSPHATASE 78 IU/L (46-116); ANION GAP 2 (8-16); ASPARTATE AMINO TRANSFERASE 20 U/L (10-37); BILIRUBIN,TOTAL 0.2 MG/DL (0.1-1.0); BLOOD UREA NITROGEN 27 MG/DL (7-18); BUN/CREATININE RATIO 62.8 (10.0-20.0); CHLORIDE 105 MMOL/L (99-107); CREATININE 0.43 MG/DL (0.60-1.10); GLUCOSE 127 MG/DL (70-104); PHOSPHORUS 3.2 MG/DL (2.3-4.5); POTASSIUM 4.1 MMOL/L (3.5-5.1); SODIUM 142 MMOL/L (135-145); TOTAL PROTEIN 4.2 G/DL (6.4-8.2); eCRCL 206 ML/MIN; eGFR > 90 ML/MIN
[2023-11-19 03:11] LABS: ABG BASE EXCESS 9.4 mmol/L (-2.0-3.0); ABG OXYGEN SATURATION 96.4 % (94.0-98.0); ABG PCO2 (T) 39.1 mmHg (35.0-48.0); ABG PH (T) 7.541 (7.350-7.450); ABG PO2 (T) 75.8 mmHg (83.0-108.0); ALLEN'S TEST Modified; FCOHb 0.6 % (0.5-1.5); FHHb 3.6 % (0.0-5.0); FMetHb 0.3 % (0.0-1.5); FO2Hb 95.5 % (94.0-98.0); MODE PRVC; PATIENT TEMPERATURE 35.9; PEEP 5 cm H2O; RESPIRATORY RATE 18 b/min; TIDAL VOLUME 475 mL; TOTAL HEMOGLOBIN 9.6 G/dl (13.5-17.5)
[2023-11-19 11:36] LABS: TRIGLYCERIDES 100 MG/DL (20-135)
[2023-11-20] VITALS (45 sets, daily range): BP systolic 91–203; BP diastolic 52–94; PULSE 68–123; RESP 16–35; O2SAT 86–100
[2023-11-20 03:24] LABS: ABG BASE EXCESS 5.6 mmol/L (-2.0-3.0); ABG HCO3 28.3 mmol/L (21.0-28.0); ABG OXYGEN SATURATION 96.7 % (94.0-98.0); ABG PCO2 (T) 33.9 mmHg (35.0-48.0); ABG PH (T) 7.539 (7.350-7.450); ABG PO2 (T) 87.3 mmHg (83.0-108.0); ALLEN'S TEST Modified; FCOHb 0.4 % (0.5-1.5); FHHb 3.3 % (0.0-5.0); FMetHb 0.3 % (0.0-1.5); MODE prvc; PATIENT TEMPERATURE 37.3; PEEP 5 cm H2O; RESPIRATORY RATE 18 b/min; TIDAL VOLUME 475 mL; TOTAL HEMOGLOBIN 9.1 G/dl (13.5-17.5)
[2023-11-20 03:27] LABS: BASOPHILS % (AUTO) 0.2 % (0-1); EOSINOPHILS % (AUTO) 0.1 % (0-6); HEMATOCRIT 25.8 % (42.0-52.0); HEMOGLOBIN 8.4 g/dl (14.0-17.9); LYMPHOCYTES # (AUTO) 0.6 X10'3 (1.1-4.8); LYMPHOCYTES % (AUTO) 5.7 % (21-51); MEAN CORPUSCULAR HEMOGLOBIN 30.5 PG (27.0-31.0); MEAN CORPUSCULAR HGB CONC 32.4 g/dL (33.0-36.5); MEAN CORPUSCULAR VOLUME 94.1 FL (78-98); MEAN PLATELET VOLUME 7.5 FL (7.4-10.4); MONOCYTES # (AUTO) 0.9 X10'3 (0-0.9); MONOCYTES % (AUTO) 9.2 % (2-12); NEUTROPHILS # (AUTO) 8.8 X10'3 (1.8-7.7); NEUTROPHILS % (AUTO) 84.8 % (42-75); PLATELET COUNT 407 X10'3 (140-440); RED BLOOD COUNT 2.75 X10'6 (4.70-6.10); RED CELL DISTRIBUTION WIDTH 19.4 % (11.5-14.5); WHITE BLOOD COUNT 10.3 X10'3 (4.5-11.0)
[2023-11-20 03:48] LABS: ALANINE AMINOTRANSFERASE 37 U/L (12-78); ALBUMIN 1.7 G/DL (3.4-5.0); ALBUMIN/GLOBULIN RATIO 0.6 (1.1-1.5); ALKALINE PHOSPHATASE 88 IU/L (46-116); ANION GAP 1 (8-16); ASPARTATE AMINO TRANSFERASE 26 U/L (10-37); BILIRUBIN,TOTAL 0.3 MG/DL (0.1-1.0); BLOOD UREA NITROGEN 24 MG/DL (7-18); BUN/CREATININE RATIO 63.2 (10.0-20.0); CHLORIDE 106 MMOL/L (99-107); CREATININE 0.38 MG/DL (0.60-1.10); GLUCOSE 146 MG/DL (70-104); PHOSPHORUS 2.7 MG/DL (2.3-4.5); POTASSIUM 4.2 MMOL/L (3.5-5.1); SODIUM 141 MMOL/L (135-145); TOTAL CARBON DIOXIDE 33.6 MMOL/L (24-32); TOTAL PROTEIN 4.5 G/DL (6.4-8.2); eCRCL 234 ML/MIN; eGFR > 90 ML/MIN
[2023-11-20 04:12] LABS: BANDS% (MANUAL) 2 % (0-10); LYMPHOCYTES % (MANUAL) 9 % (21-51); MONOCYTES % (MANUAL) 7 % (2-12); NEUTROPHILS % (MANUAL) 82 % (42-75); PLATELET ESTIMATE NORMAL; POLYCHROMASIA FEW; TOTAL CELLS COUNTED 100
[2023-11-20 04:13] LABS: ANISOCYTOSIS 2+; ELLIPTOCYTES FEW
[2023-11-20 04:14] LABS: STOMATOCYTES 1+
[2023-11-20] MEDS: apixaban 5mg tablet OGT SCH (08:09)
[2023-11-20] MEDS: ipratropium/albuterol 3ml nebule NEB SCH (15:35)
[2023-11-20] MEDS: etomidate 2mg/ml inj. IV ONE (23:54)
[2023-11-20] MEDS: succinylcholine 20mg/ml inj IV ONE (23:54)
[2023-11-20] MEDS: propofol 1000mg/100ml bottle 100 ML IV SCH (23:55)
[2023-11-21] VITALS (42 sets, daily range): BP systolic 59–160; BP diastolic 42–93; PULSE 61–116; RESP 1–29; O2SAT 88–100
[2023-11-21] MEDS: propofol 1000mg/100ml bottle 100 ML IV ONE
[2023-11-21] MEDS: succinylcholine 20mg/ml inj IV ONE
[2023-11-21] MEDS: FENTANYL-0.9 % NACL/PF 100 ML IV SCH (00:01)
[2023-11-21 02:34] LABS: BASOPHILS % (AUTO) 0.2 % (0-1); EOSINOPHILS % (AUTO) 0.2 % (0-6); HEMATOCRIT 26.8 % (42.0-52.0); HEMOGLOBIN 8.6 g/dl (14.0-17.9); LYMPHOCYTES # (AUTO) 0.3 X10'3 (1.1-4.8); MEAN CORPUSCULAR HEMOGLOBIN 30.3 PG (27.0-31.0); MEAN CORPUSCULAR HGB CONC 32.1 g/dL (33.0-36.5); MEAN CORPUSCULAR VOLUME 94.3 FL (78-98); MEAN PLATELET VOLUME 7.6 FL (7.4-10.4); MONOCYTES # (AUTO) 1.1 X10'3 (0-0.9); MONOCYTES % (AUTO) 9.4 % (2-12); NEUTROPHILS # (AUTO) 9.9 X10'3 (1.8-7.7); NEUTROPHILS % (AUTO) 87.2 % (42-75); PLATELET COUNT 323 X10'3 (140-440); RED BLOOD COUNT 2.85 X10'6 (4.70-6.10); RED CELL DISTRIBUTION WIDTH 19.2 % (11.5-14.5); WHITE BLOOD COUNT 11.4 X10'3 (4.5-11.0)
[2023-11-21 02:45] LABS: ALANINE AMINOTRANSFERASE 40 U/L (12-78); ALBUMIN 1.7 G/DL (3.4-5.0); ALBUMIN/GLOBULIN RATIO 0.6 (1.1-1.5); ALKALINE PHOSPHATASE 82 IU/L (46-116); ANION GAP 3 (8-16); ASPARTATE AMINO TRANSFERASE 43 U/L (10-37); BILIRUBIN,TOTAL 0.3 MG/DL (0.1-1.0); BLOOD UREA NITROGEN 22 MG/DL (7-18); BUN/CREATININE RATIO 62.9 (10.0-20.0); CALCIUM 8.2 MG/DL (8.5-10.1); CHLORIDE 104 MMOL/L (99-107); CREATININE 0.35 MG/DL (0.60-1.10); GLUCOSE 129 MG/DL (70-104); PHOSPHORUS 3.5 MG/DL (2.3-4.5); POTASSIUM 4.4 MMOL/L (3.5-5.1); SODIUM 140 MMOL/L (135-145); TOTAL CARBON DIOXIDE 33.3 MMOL/L (24-32); TOTAL PROTEIN 4.7 G/DL (6.4-8.2); TRIGLYCERIDES 117 MG/DL (20-135); eCRCL 254 ML/MIN; eGFR > 90 ML/MIN
[2023-11-21 03:21] LABS: ANISOCYTOSIS 2+; ELLIPTOCYTES FEW; PLATELET ESTIMATE NORMAL; POLYCHROMASIA FEW; SCHISTOCYTES FEW
[2023-11-21 03:41] LABS: ABG BASE EXCESS 8.1 mmol/L (-2.0-3.0); ABG HCO3 32.7 mmol/L (21.0-28.0); ABG OXYGEN SATURATION 99.5 % (94.0-98.0); ABG PCO2 (T) 46.9 mmHg (35.0-48.0); ABG PH (T) 7.462 (7.350-7.450); ABG PO2 (T) 213.4 mmHg (83.0-108.0); ALLEN'S TEST Modified; FCOHb 0.3 % (0.5-1.5); FHHb 0.5 % (0.0-5.0); FMetHb 0.3 % (0.0-1.5); FO2Hb 98.9 % (94.0-98.0); MODE CMV PRVC IT 0.9; PATIENT TEMPERATURE 37.3; PEEP 5 cm H2O; RESPIRATORY RATE 16 b/min; TIDAL VOLUME 475 mL; TOTAL HEMOGLOBIN 9.1 G/dl (13.5-17.5)
[2023-11-21] MEDS: propofol 1000mg/100ml bottle 100 ML IV SCH (05:25)
[2023-11-21] MEDS: insulin regular, human U-100 10ml vial - multi-dose SQ SCH (13:53)
[2023-11-21] MEDS: insulin glargine (Lantus) pen - multi-dose SQ SCH (20:38)
[2023-11-22] VITALS (38 sets, daily range): BP systolic 93–142; BP diastolic 39–76; PULSE 53–109; RESP 16–36; O2SAT 92–99
[2023-11-22 02:12] LABS: BASOPHILS # (AUTO) 0.1 X10'3 (0-0.2); BASOPHILS % (AUTO) 0.5 % (0-1); EOSINOPHILS % (AUTO) 0.4 % (0-6); HEMATOCRIT 26.5 % (42.0-52.0); HEMOGLOBIN 8.6 g/dl (14.0-17.9); LYMPHOCYTES # (AUTO) 0.6 X10'3 (1.1-4.8); LYMPHOCYTES % (AUTO) 5.3 % (21-51); MEAN CORPUSCULAR HEMOGLOBIN 30.4 PG (27.0-31.0); MEAN CORPUSCULAR HGB CONC 32.6 g/dL (33.0-36.5); MEAN CORPUSCULAR VOLUME 93.1 FL (78-98); MEAN PLATELET VOLUME 7.5 FL (7.4-10.4); MONOCYTES % (AUTO) 9.4 % (2-12); NEUTROPHILS # (AUTO) 8.9 X10'3 (1.8-7.7); NEUTROPHILS % (AUTO) 84.4 % (42-75); PLATELET COUNT 362 X10'3 (140-440); RED BLOOD COUNT 2.84 X10'6 (4.70-6.10); RED CELL DISTRIBUTION WIDTH 18.3 % (11.5-14.5); WHITE BLOOD COUNT 10.5 X10'3 (4.5-11.0)
[2023-11-22 02:31] LABS: ALANINE AMINOTRANSFERASE 41 U/L (12-78); ALBUMIN 1.7 G/DL (3.4-5.0); ALBUMIN/GLOBULIN RATIO 0.5 (1.1-1.5); ALKALINE PHOSPHATASE 91 IU/L (46-116); ANION GAP 0 (8-16); ASPARTATE AMINO TRANSFERASE 36 U/L (10-37); BILIRUBIN,TOTAL 0.3 MG/DL (0.1-1.0); BLOOD UREA NITROGEN 18 MG/DL (7-18); BUN/CREATININE RATIO 62.1 (10.0-20.0); CHLORIDE 106 MMOL/L (99-107); CREATININE 0.29 MG/DL (0.60-1.10); GLUCOSE 146 MG/DL (70-104); MAGNESIUM 1.8 MG/DL (1.5-2.4); PHOSPHORUS 2.4 MG/DL (2.3-4.5); POTASSIUM 4.3 MMOL/L (3.5-5.1); PREALBUMIN 19.5 MG/DL (19-36); SODIUM 142 MMOL/L (135-145); TOTAL CARBON DIOXIDE 36.4 MMOL/L (24-32); TOTAL PROTEIN 4.9 G/DL (6.4-8.2); TRIGLYCERIDES 155 MG/DL (20-135); eCRCL 306 ML/MIN; eGFR > 90 ML/MIN
[2023-11-22 03:13] LABS: ABG HCO3 34.8 mmol/L (21.0-28.0); ABG OXYGEN SATURATION 97.7 % (94.0-98.0); ABG PCO2 (T) 49.7 mmHg (35.0-48.0); ABG PH (T) 7.465 (7.350-7.450); ABG PO2 (T) 101.4 mmHg (83.0-108.0); ALLEN'S TEST Modified; FCOHb 0.4 % (0.5-1.5); FHHb 2.3 % (0.0-5.0); FMetHb 0.3 % (0.0-1.5); MODE prvc; PATIENT TEMPERATURE 37.5; PEEP 5 cm H2O; RESPIRATORY RATE 16 b/min; TIDAL VOLUME 475 mL; TOTAL HEMOGLOBIN 9.3 G/dl (13.5-17.5)
[2023-11-22] MEDS: acetaminophen 325mg/10.15ml oral unit dose solution OGT PRN (08:25)
[2023-11-22] MEDS ORDERED: insulin glargine (Lantus) pen - multi-dose SQ SCH (10:27)
[2023-11-22] MEDS: DEXMEDETOMIDINE 400MCG in NORMAL SALINE 100ml IV SCH (11:37)
[2023-11-22] MEDS: piperacillin/tazo 4.5gm/100ml 100 ML IV SCH (11:37)
[2023-11-22] MEDS: insulin glargine (Lantus) pen - multi-dose SQ SCH (11:42)
[2023-11-23] VITALS (37 sets, daily range): BP systolic 88–134; BP diastolic 45–82; PULSE 48–92; RESP 16–23; TEMP 99.3; O2SAT 91–100
[2023-11-23 02:39] LABS: BASOPHILS % (AUTO) 0.6 % (0-1); EOSINOPHILS % (AUTO) 0.6 % (0-6); HEMATOCRIT 30.3 % (42.0-52.0); HEMOGLOBIN 9.7 g/dl (14.0-17.9); LYMPHOCYTES # (AUTO) 0.3 X10'3 (1.1-4.8); LYMPHOCYTES % (AUTO) 3.4 % (21-51); MEAN CORPUSCULAR HEMOGLOBIN 29.9 PG (27.0-31.0); MEAN CORPUSCULAR VOLUME 93.4 FL (78-98); MEAN PLATELET VOLUME 7.7 FL (7.4-10.4); MONOCYTES # (AUTO) 0.4 X10'3 (0-0.9); MONOCYTES % (AUTO) 5.5 % (2-12); NEUTROPHILS # (AUTO) 6.9 X10'3 (1.8-7.7); NEUTROPHILS % (AUTO) 89.9 % (42-75); PLATELET COUNT 327 X10'3 (140-440); RED BLOOD COUNT 3.25 X10'6 (4.70-6.10); RED CELL DISTRIBUTION WIDTH 18.7 % (11.5-14.5); WHITE BLOOD COUNT 7.7 X10'3 (4.5-11.0)
[2023-11-23 02:54] LABS: ALANINE AMINOTRANSFERASE 40 U/L (12-78); ALBUMIN 1.7 G/DL (3.4-5.0); ALBUMIN/GLOBULIN RATIO 0.5 (1.1-1.5); ALKALINE PHOSPHATASE 92 IU/L (46-116); ANION GAP 5 (8-16); ASPARTATE AMINO TRANSFERASE 27 U/L (10-37); BILIRUBIN,TOTAL 0.3 MG/DL (0.1-1.0); BLOOD UREA NITROGEN 14 MG/DL (7-18); BUN/CREATININE RATIO 41.2 (10.0-20.0); CALCIUM 8.3 MG/DL (8.5-10.1); CHLORIDE 104 MMOL/L (99-107); CREATININE 0.34 MG/DL (0.60-1.10); GLUCOSE 127 MG/DL (70-104); MAGNESIUM 1.9 MG/DL (1.5-2.4); PHOSPHORUS 2.6 MG/DL (2.3-4.5); POTASSIUM 4.2 MMOL/L (3.5-5.1); SODIUM 142 MMOL/L (135-145); TOTAL CARBON DIOXIDE 32.8 MMOL/L (24-32); TOTAL PROTEIN 5.4 G/DL (6.4-8.2); eCRCL 261 ML/MIN; eGFR > 90 ML/MIN
[2023-11-23 03:41] LABS: ABG BASE EXCESS 6.1 mmol/L (-2.0-3.0); ABG HCO3 29.7 mmol/L (21.0-28.0); ABG OXYGEN SATURATION 96.8 % (94.0-98.0); ABG PCO2 (T) 41.9 mmHg (35.0-48.0); ABG PH (T) 7.474 (7.350-7.450); ABG PO2 (T) 93.6 mmHg (83.0-108.0); ALLEN'S TEST Modified; FCOHb 0.4 % (0.5-1.5); FHHb 3.2 % (0.0-5.0); FMetHb 0.3 % (0.0-1.5); FO2Hb 96.1 % (94.0-98.0); MODE prvc; PATIENT TEMPERATURE 38.6; PEEP 5 cm H2O; RESPIRATORY RATE 16 b/min; TIDAL VOLUME 475 mL; TOTAL HEMOGLOBIN 10.9 G/dl (13.5-17.5)
[2023-11-23] MEDS: acetaminophen 1,000mg/100ml IV 100 ML IV ONE (05:17)
[2023-11-23] MEDS: LidoCAINE 2% Topical Jelly 11mL syringe (UROJET) TOP ONE (11:18)
[2023-11-23] MEDS: NORepinephrine 8mg/ 250ml NS 250 ML IV SCH (11:19)
[2023-11-23 12:01] LABS: BILIRUBIN,URINE NEGATIVE (Neg); CLARITY,URINE SLIGHTLY CLOUDY (Clear); COLOR,URINE YELLOW (Yellow); GLUCOSE, URINE 100 mg/dl (Neg); KETONES,URINE NEGATIVE (Neg); LEUKOCYTE ESTERASE ,URINE NEGATIVE (Neg); NITRITES, URINE NEGATIVE (Neg); OCCULT BLOOD,URINE SMALL (Neg); PROTEIN,URINE NEGATIVE (Neg); UROBILINOGEN,URINE 0.2 E.U/dL (0.2-1.0)
[2023-11-23 12:12] LABS: SQUAMOUS EPITHELIAL CELL,UR FEW /LPF (FEW); UA COLLECTION TYPE FOLEY CATH
[2023-11-23 12:13] LABS: RENAL CELLS, URINE FEW /HPF; TRANSITIONAL EPI CELLS,URINE FEW /HPF
[2023-11-23 12:14] LABS: BACTERIA,URINE FEW /HPF (Neg)
[2023-11-23] MEDS ORDERED: sevoflurane 250ml liquid IH ONE (12:22)
[2023-11-23] MEDS ORDERED: fentaNYL/PF 50MCG/1 ML 2ML syringe ONE (12:59)
[2023-11-23] MEDS ORDERED: rocuronium 10mg/ml inj IV ONE ×2 (13:20→14:55)
[2023-11-23] MEDS ORDERED: midazolam 1 mg/ML 2ml injection ONE (13:20)
[2023-11-23] MEDS ORDERED: dexamethasone sod phosphate 4mg/ml inj. ONE (14:55)
[2023-11-23] MEDS ORDERED: ondansetron/PF 4mg/2ml inj ONE ×2 (14:55)
[2023-11-23 16:20] LABS: ABG BASE EXCESS 5.7 mmol/L (-2.0-3.0); ABG HCO3 30.7 mmol/L (21.0-28.0); ABG OXYGEN SATURATION 97.8 % (94.0-98.0); ABG PCO2 (T) 46.5 mmHg (35.0-48.0); ABG PH (T) 7.436 (7.350-7.450); ABG PO2 (T) 97.4 mmHg (83.0-108.0); ALLEN'S TEST POSITIVE; FCOHb 0.7 % (0.5-1.5); FHHb 2.2 % (0.0-5.0); FMetHb 0.3 % (0.0-1.5); FO2Hb 96.8 % (94.0-98.0); PATIENT TEMPERATURE 36.9; PEEP 5 cm H2O; RESPIRATORY RATE 16 b/min; TIDAL VOLUME 475 mL; TOTAL HEMOGLOBIN 10.8 G/dl (13.5-17.5)
[2023-11-23] MEDS ORDERED: VANCOmycin 2,000MG in NS 500ml IV soln IV ONE (17:15)
[2023-11-23] MEDS: ringers solution, lacted 1,000 ML IV ONE (17:29)
[2023-11-23] MEDS: docusate sodium 100mg/10ml UD cup PEG SCH (18:43)
[2023-11-23] MEDS: linezolid 600mg/300ml PREMIX 300 ML IV SCH (19:44)
[2023-11-23] MEDS: INSULIN LISPRO 100 UNIT/ML INSULN.PEN MULTI-DOSE SQ SCH (20:28)
[2023-11-24] VITALS (36 sets, daily range): BP systolic 80–135; BP diastolic 32–83; PULSE 50–76; RESP 16–32; O2SAT 82–100
[2023-11-24 02:42] LABS: BASOPHILS % (AUTO) 0.2 % (0-1); EOSINOPHILS % (AUTO) 0 % (0-6); HEMATOCRIT 29.9 % (42.0-52.0); HEMOGLOBIN 9.7 g/dl (14.0-17.9); LYMPHOCYTES # (AUTO) 0.2 X10'3 (1.1-4.8); LYMPHOCYTES % (AUTO) 2.4 % (21-51); MEAN CORPUSCULAR HEMOGLOBIN 30.5 PG (27.0-31.0); MEAN CORPUSCULAR HGB CONC 32.5 g/dL (33.0-36.5); MEAN PLATELET VOLUME 7.7 FL (7.4-10.4); MONOCYTES # (AUTO) 0.7 X10'3 (0-0.9); MONOCYTES % (AUTO) 8.5 % (2-12); NEUTROPHILS # (AUTO) 7.6 X10'3 (1.8-7.7); NEUTROPHILS % (AUTO) 88.9 % (42-75); PLATELET COUNT 281 X10'3 (140-440); RED BLOOD COUNT 3.18 X10'6 (4.70-6.10); RED CELL DISTRIBUTION WIDTH 18.6 % (11.5-14.5); WHITE BLOOD COUNT 8.5 X10'3 (4.5-11.0)
[2023-11-24] MEDS ORDERED: vancomycin/NS 1 GM ADD-VANTAGE 250 ML IV SCH (03:00)
[2023-11-24 03:03] LABS: ALANINE AMINOTRANSFERASE 37 U/L (12-78); ALBUMIN 1.6 G/DL (3.4-5.0); ALBUMIN/GLOBULIN RATIO 0.4 (1.1-1.5); ALKALINE PHOSPHATASE 84 IU/L (46-116); ANION GAP 4 (8-16); ASPARTATE AMINO TRANSFERASE 20 U/L (10-37); BILIRUBIN,TOTAL 0.4 MG/DL (0.1-1.0); BLOOD UREA NITROGEN 18 MG/DL (7-18); BUN/CREATININE RATIO 46.2 (10.0-20.0); CALCIUM 8.6 MG/DL (8.5-10.1); CHLORIDE 102 MMOL/L (99-107); CREATININE 0.39 MG/DL (0.60-1.10); GLUCOSE 225 MG/DL (70-104); PHOSPHORUS 3.1 MG/DL (2.3-4.5); POTASSIUM 4.7 MMOL/L (3.5-5.1); SODIUM 138 MMOL/L (135-145); TOTAL CARBON DIOXIDE 31.7 MMOL/L (24-32); TOTAL PROTEIN 5.3 G/DL (6.4-8.2); eCRCL 228 ML/MIN; eGFR > 90 ML/MIN
[2023-11-24 03:15] LABS: ANISOCYTOSIS 2+; ELLIPTOCYTES FEW; PLATELET ESTIMATE NORMAL; POLYCHROMASIA FEW; SCHISTOCYTES FEW; TEAR DROP CELLS FEW
[2023-11-24] MEDS: predniSONE 20 mg tablet PO SCH (08:00)
[2023-11-24] MEDS: ringers solution, lacted 1,000 ML IV SCH (08:02)
[2023-11-24] MEDS: ringers solution, lacted 1,000 ML IV ONE (08:02)
[2023-11-24] MEDS ORDERED: VANCOMYCIN LEVEL IV ONE (18:30)
[2023-11-25] VITALS (56 sets, daily range): BP systolic 84–131; BP diastolic 24–69; PULSE 47–110; RESP 12–30; O2SAT 90–100
[2023-11-25 02:32] LABS: BASOPHILS % (AUTO) 0.2 % (0-1); EOSINOPHILS % (AUTO) 0.6 % (0-6); HEMATOCRIT 27.8 % (42.0-52.0); LYMPHOCYTES # (AUTO) 0.4 X10'3 (1.1-4.8); LYMPHOCYTES % (AUTO) 5.1 % (21-51); MEAN CORPUSCULAR HEMOGLOBIN 30.5 PG (27.0-31.0); MEAN CORPUSCULAR HGB CONC 32.6 g/dL (33.0-36.5); MEAN CORPUSCULAR VOLUME 93.6 FL (78-98); MEAN PLATELET VOLUME 7.4 FL (7.4-10.4); MONOCYTES % (AUTO) 12.9 % (2-12); NEUTROPHILS # (AUTO) 6.4 X10'3 (1.8-7.7); NEUTROPHILS % (AUTO) 81.2 % (42-75); PLATELET COUNT 270 X10'3 (140-440); RED BLOOD COUNT 2.97 X10'6 (4.70-6.10); RED CELL DISTRIBUTION WIDTH 18.3 % (11.5-14.5); WHITE BLOOD COUNT 7.9 X10'3 (4.5-11.0)
[2023-11-25 02:40] LABS: ALANINE AMINOTRANSFERASE 38 U/L (12-78); ALBUMIN 1.5 G/DL (3.4-5.0); ALBUMIN/GLOBULIN RATIO 0.4 (1.1-1.5); ALKALINE PHOSPHATASE 78 IU/L (46-116); ANION GAP 3 (8-16); ASPARTATE AMINO TRANSFERASE 28 U/L (10-37); BILIRUBIN,TOTAL 0.3 MG/DL (0.1-1.0); BLOOD UREA NITROGEN 11 MG/DL (7-18); BUN/CREATININE RATIO 34.4 (10.0-20.0); CHLORIDE 102 MMOL/L (99-107); CREATININE 0.32 MG/DL (0.60-1.10); GLUCOSE 158 MG/DL (70-104); MAGNESIUM 1.6 MG/DL (1.5-2.4); PHOSPHORUS 2.8 MG/DL (2.3-4.5); POTASSIUM 3.7 MMOL/L (3.5-5.1); PREALBUMIN 16.3 MG/DL (19-36); SODIUM 137 MMOL/L (135-145); TOTAL CARBON DIOXIDE 32.5 MMOL/L (24-32); TOTAL PROTEIN 4.9 G/DL (6.4-8.2); eCRCL 277 ML/MIN; eGFR > 90 ML/MIN
[2023-11-25] MEDS ORDERED: quetiapine 100mg tablet PO SCH (10:57)
[2023-11-25] MEDS: ringers solution, lacted 2,000 ML IV ONE (11:20)
[2023-11-25] MEDS: ringers solution, lacted 1,000 ML IV ONE (12:34)
[2023-11-25] MEDS: fentaNYL/PF 50MCG/1 ML 2ML syringe IV PRN (17:56)
[2023-11-25] MEDS: apixaban 5mg tablet OGT SCH (20:30)
[2023-11-25] MEDS: quetiapine 100mg tablet OGT SCH (20:30)
[2023-11-26] VITALS (35 sets, daily range): BP systolic 83–146; BP diastolic 36–74; PULSE 81–99; RESP 15–37; O2SAT 77–100
[2023-11-26 02:23] LABS: BASOPHILS % (AUTO) 0.2 % (0-1); EOSINOPHILS % (AUTO) 0.5 % (0-6); HEMATOCRIT 24.8 % (42.0-52.0); HEMOGLOBIN 8.1 g/dl (14.0-17.9); LYMPHOCYTES # (AUTO) 0.4 X10'3 (1.1-4.8); LYMPHOCYTES % (AUTO) 7.4 % (21-51); MEAN CORPUSCULAR HEMOGLOBIN 30.3 PG (27.0-31.0); MEAN CORPUSCULAR HGB CONC 32.5 g/dL (33.0-36.5); MEAN CORPUSCULAR VOLUME 93.2 FL (78-98); MEAN PLATELET VOLUME 7.4 FL (7.4-10.4); MONOCYTES # (AUTO) 0.6 X10'3 (0-0.9); MONOCYTES % (AUTO) 12.7 % (2-12); NEUTROPHILS # (AUTO) 3.8 X10'3 (1.8-7.7); NEUTROPHILS % (AUTO) 79.2 % (42-75); PLATELET COUNT 201 X10'3 (140-440); RED BLOOD COUNT 2.66 X10'6 (4.70-6.10); WHITE BLOOD COUNT 4.8 X10'3 (4.5-11.0)
[2023-11-26 02:36] LABS: ANION GAP 2 (8-16); BILIRUBIN,TOTAL 0.2 MG/DL (0.1-1.0); BLOOD UREA NITROGEN 11 MG/DL (7-18); BUN/CREATININE RATIO 33.3 (10.0-20.0); CALCIUM 7.6 MG/DL (8.5-10.1); CHLORIDE 105 MMOL/L (99-107); CREATININE 0.33 MG/DL (0.60-1.10); GLUCOSE 219 MG/DL (70-104); MAGNESIUM 1.5 MG/DL (1.5-2.4); PHOSPHORUS 1.9 MG/DL (2.3-4.5); POTASSIUM 3.5 MMOL/L (3.5-5.1); SODIUM 138 MMOL/L (135-145); TOTAL CARBON DIOXIDE 30.8 MMOL/L (24-32); eCRCL 269 ML/MIN; eGFR > 90 ML/MIN
[2023-11-26 02:37] LABS: ALANINE AMINOTRANSFERASE 34 U/L (12-78); ALBUMIN 1.3 G/DL (3.4-5.0); ALBUMIN/GLOBULIN RATIO 0.4 (1.1-1.5); ALKALINE PHOSPHATASE 89 IU/L (46-116); ASPARTATE AMINO TRANSFERASE 24 U/L (10-37); TOTAL PROTEIN 4.6 G/DL (6.4-8.2)
[2023-11-26] MEDS ORDERED: potassium Cl 20 mEq SR tablet PO PRN ×2 (06:40)
[2023-11-26] MEDS ORDERED: sodium phosphate inj. 30 MMOL in dextrose 5%-water 250 ML IV PRN (06:40)
[2023-11-26] MEDS ORDERED: magnesium sulf-water 4G/100mL 100 ML IV PRN (06:40)
[2023-11-26] MEDS ORDERED: magnesium sulf-water 2g/50mL 50 ML IV PRN (06:40)
[2023-11-26] MEDS ORDERED: Neutra Phos packet PO PRN (06:40)
[2023-11-26] MEDS: predniSONE 20 mg tablet OGT SCH (08:09)
[2023-11-26] MEDS: sodium phosphate inj. 15 MMOL in dextrose 5%-water 250 ML IV PRN (08:21)
[2023-11-26] MEDS: mineral oil/petrolatum ophthal oint EACHEYE PRN (12:29)
[2023-11-26] MEDS: ARGININE/GLUTAMINE/CALCIUM BMB (JUVEN 19.3GM PKT) 1 EACH POWD.PACK PO SCH (19:48)
[2023-11-27] VITALS (33 sets, daily range): BP systolic 96–183; BP diastolic 41–87; PULSE 79–101; RESP 16–30; O2SAT 95–100
[2023-11-27 02:27] LABS: BASOPHILS % (AUTO) 0.2 % (0-1); EOSINOPHILS % (AUTO) 0.8 % (0-6); HEMATOCRIT 23.3 % (42.0-52.0); HEMOGLOBIN 7.8 g/dl (14.0-17.9); LYMPHOCYTES # (AUTO) 0.4 X10'3 (1.1-4.8); LYMPHOCYTES % (AUTO) 8.9 % (21-51); MEAN CORPUSCULAR HEMOGLOBIN 31.2 PG (27.0-31.0); MEAN CORPUSCULAR HGB CONC 33.5 g/dL (33.0-36.5); MEAN CORPUSCULAR VOLUME 93.2 FL (78-98); MEAN PLATELET VOLUME 7.7 FL (7.4-10.4); MONOCYTES # (AUTO) 0.5 X10'3 (0-0.9); MONOCYTES % (AUTO) 11.3 % (2-12); NEUTROPHILS # (AUTO) 3.6 X10'3 (1.8-7.7); NEUTROPHILS % (AUTO) 78.8 % (42-75); PLATELET COUNT 205 X10'3 (140-440); RED CELL DISTRIBUTION WIDTH 18.1 % (11.5-14.5); WHITE BLOOD COUNT 4.6 X10'3 (4.5-11.0)
[2023-11-27 02:58] LABS: ALANINE AMINOTRANSFERASE 39 U/L (12-78); ALBUMIN 1.4 G/DL (3.4-5.0); ALBUMIN/GLOBULIN RATIO 0.4 (1.1-1.5); ALKALINE PHOSPHATASE 93 IU/L (46-116); ANION GAP 5 (8-16); ASPARTATE AMINO TRANSFERASE 24 U/L (10-37); BILIRUBIN,TOTAL 0.2 MG/DL (0.1-1.0); BLOOD UREA NITROGEN 12 MG/DL (7-18); BUN/CREATININE RATIO 35.3 (10.0-20.0); CALCIUM 7.8 MG/DL (8.5-10.1); CHLORIDE 105 MMOL/L (99-107); CREATININE 0.34 MG/DL (0.60-1.10); GLUCOSE 252 MG/DL (70-104); MAGNESIUM 1.5 MG/DL (1.5-2.4); PHOSPHORUS 1.9 MG/DL (2.3-4.5); POTASSIUM 3.8 MMOL/L (3.5-5.1); SODIUM 142 MMOL/L (135-145); TOTAL CARBON DIOXIDE 32.1 MMOL/L (24-32); TOTAL PROTEIN 4.8 G/DL (6.4-8.2); eCRCL 261 ML/MIN; eGFR > 90 ML/MIN
[2023-11-27] MEDS: HYDROcodone/acetaminophen 7.5MG/325MG per 15ml UD CUP OGT PRN (04:14)
[2023-11-27] MEDS: sodium phosphate inj. 30 MMOL in dextrose 5%-water 250 ML IV ONE (07:15)
[2023-11-27] MEDS: magnesium sulf-water 2g/50mL 50 ML IV ONE (07:17)
[2023-11-27] MEDS: insulin glargine (Lantus) pen - multi-dose SQ SCH (19:39)
[2023-11-28] VITALS (36 sets, daily range): BP systolic 114–165; BP diastolic 49–76; PULSE 76–107; RESP 17–26; O2SAT 94–100
[2023-11-28 03:07] LABS: BASOPHILS % (AUTO) 0.3 % (0-1); EOSINOPHILS # (AUTO) 0.1 X10'3 (0-0.9); EOSINOPHILS % (AUTO) 1.1 % (0-6); HEMATOCRIT 26.4 % (42.0-52.0); HEMOGLOBIN 8.6 g/dl (14.0-17.9); LYMPHOCYTES # (AUTO) 0.4 X10'3 (1.1-4.8); LYMPHOCYTES % (AUTO) 6.1 % (21-51); MEAN CORPUSCULAR HEMOGLOBIN 30.8 PG (27.0-31.0); MEAN CORPUSCULAR HGB CONC 32.6 g/dL (33.0-36.5); MEAN CORPUSCULAR VOLUME 94.2 FL (78-98); MEAN PLATELET VOLUME 7.4 FL (7.4-10.4); MONOCYTES # (AUTO) 0.6 X10'3 (0-0.9); MONOCYTES % (AUTO) 9.4 % (2-12); NEUTROPHILS # (AUTO) 5.1 X10'3 (1.8-7.7); NEUTROPHILS % (AUTO) 83.1 % (42-75); PLATELET COUNT 223 X10'3 (140-440); WHITE BLOOD COUNT 6.1 X10'3 (4.5-11.0)
[2023-11-28 03:24] LABS: ALANINE AMINOTRANSFERASE 48 U/L (12-78); ALBUMIN 1.7 G/DL (3.4-5.0); ALBUMIN/GLOBULIN RATIO 0.5 (1.1-1.5); ALKALINE PHOSPHATASE 114 IU/L (46-116); ANION GAP 3 (8-16); ASPARTATE AMINO TRANSFERASE 30 U/L (10-37); BILIRUBIN,TOTAL 0.2 MG/DL (0.1-1.0); BLOOD UREA NITROGEN 18 MG/DL (7-18); CALCIUM 8.2 MG/DL (8.5-10.1); CHLORIDE 102 MMOL/L (99-107); CREATININE 0.36 MG/DL (0.60-1.10); GLUCOSE 263 MG/DL (70-104); MAGNESIUM 1.7 MG/DL (1.5-2.4); POTASSIUM 4.3 MMOL/L (3.5-5.1); SODIUM 140 MMOL/L (135-145); TOTAL PROTEIN 5.4 G/DL (6.4-8.2); TRIGLYCERIDES 63 MG/DL (20-135); eCRCL 247 ML/MIN; eGFR > 90 ML/MIN
[2023-11-28] MEDS ORDERED: ALPRAZolam 0.25mg tablet PO PRN (08:55)
[2023-11-28] MEDS: acetaZOLAMIDE IV 500mg inj IV ONE (10:35)
[2023-11-29] VITALS (37 sets, daily range): BP systolic 93–181; BP diastolic 56–94; PULSE 87–111; RESP 15–31; O2SAT 92–100
[2023-11-29 02:56] LABS: PREALBUMIN 20.9 MG/DL (19-36)
[2023-11-29 06:12] LABS: BASOPHILS % (AUTO) 0.5 % (0-1); EOSINOPHILS # (AUTO) 0.1 X10'3 (0-0.9); HEMOGLOBIN 8.8 g/dl (14.0-17.9); LYMPHOCYTES # (AUTO) 0.3 X10'3 (1.1-4.8); LYMPHOCYTES % (AUTO) 4.5 % (21-51); MEAN CORPUSCULAR HEMOGLOBIN 30.4 PG (27.0-31.0); MEAN CORPUSCULAR HGB CONC 31.5 g/dL (33.0-36.5); MEAN CORPUSCULAR VOLUME 96.7 FL (78-98); MONOCYTES # (AUTO) 0.7 X10'3 (0-0.9); MONOCYTES % (AUTO) 8.8 % (2-12); NEUTROPHILS # (AUTO) 6.5 X10'3 (1.8-7.7); NEUTROPHILS % (AUTO) 85.2 % (42-75); PLATELET COUNT 250 X10'3 (140-440); RED CELL DISTRIBUTION WIDTH 18.3 % (11.5-14.5); WHITE BLOOD COUNT 7.7 X10'3 (4.5-11.0)
[2023-11-29 06:24] LABS: ALANINE AMINOTRANSFERASE 49 U/L (12-78); ALBUMIN 1.8 G/DL (3.4-5.0); ALBUMIN/GLOBULIN RATIO 0.5 (1.1-1.5); ALKALINE PHOSPHATASE 111 IU/L (46-116); ANION GAP 5 (8-16); ASPARTATE AMINO TRANSFERASE 21 U/L (10-37); BILIRUBIN,TOTAL 0.2 MG/DL (0.1-1.0); BLOOD UREA NITROGEN 20 MG/DL (7-18); BUN/CREATININE RATIO 51.3 (10.0-20.0); CALCIUM 8.2 MG/DL (8.5-10.1); CHLORIDE 105 MMOL/L (99-107); CREATININE 0.39 MG/DL (0.60-1.10); GLUCOSE 255 MG/DL (70-104); MAGNESIUM 1.9 MG/DL (1.5-2.4); PHOSPHORUS 2.4 MG/DL (2.3-4.5); SODIUM 138 MMOL/L (135-145); TOTAL CARBON DIOXIDE 28.4 MMOL/L (24-32); TOTAL PROTEIN 5.6 G/DL (6.4-8.2); eCRCL 228 ML/MIN; eGFR > 90 ML/MIN
[2023-11-29 06:47] LABS: PLATELET ESTIMATE NORMAL
[2023-11-29 06:48] LABS: ANISOCYTOSIS 2+; BURR CELLS FEW; ROULEAUX 1+; TEAR DROP CELLS FEW
[2023-11-29] MEDS: prednisone 10mg tablet OGT SCH (09:20)
[2023-11-29] MEDS ORDERED: DEXTROSE 15 GM of carb/4 tabs (each vial/BOTTLE has 4 tablets) PEG PRN ×2 (11:17→11:18)
[2023-11-29] MEDS ORDERED: mag hydrox/Alum hydrox/simeth 30ml oral suspension PEG PRN (11:18)
[2023-11-29] MEDS ORDERED: magnesium hydroxide 30ml (MOM) UD suspension PEG PRN (11:19)
[2023-11-29] MEDS ORDERED: Neutra Phos packet PEG PRN (11:19)
[2023-11-29] MEDS ORDERED: POTASSIUM CHLORIDE 20 MEQ/15 ML oral solution PEG PRN ×2 (11:20→11:21)
[2023-11-29] MEDS: normal saline 1000ml 1,000 ML IV SCH (15:15)
[2023-11-29] MEDS: ARGININE/GLUTAMINE/CALCIUM BMB (JUVEN 19.3GM PKT) 1 EACH POWD.PACK PEG SCH (20:26)
[2023-11-29] MEDS: apixaban 5mg tablet PEG SCH (20:30)
[2023-11-29] MEDS: GABAPENTIN 300 MG/6 ML oral SOLUTION cup PEG SCH (20:30)
[2023-11-29] MEDS: quetiapine 100mg tablet PEG SCH (20:59)
[2023-11-30] VITALS (44 sets, daily range): BP systolic 83–126; BP diastolic 34–77; PULSE 89–114; RESP 12–37; O2SAT 94–100
[2023-11-30 02:25] LABS: BASOPHILS # (AUTO) 0.1 X10'3 (0-0.2); BASOPHILS % (AUTO) 0.8 % (0-1); EOSINOPHILS # (AUTO) 0.1 X10'3 (0-0.9); HEMATOCRIT 28.2 % (42.0-52.0); LYMPHOCYTES # (AUTO) 0.4 X10'3 (1.1-4.8); LYMPHOCYTES % (AUTO) 6.2 % (21-51); MEAN CORPUSCULAR HEMOGLOBIN 30.3 PG (27.0-31.0); MEAN CORPUSCULAR VOLUME 94.8 FL (78-98); MEAN PLATELET VOLUME 7.3 FL (7.4-10.4); MONOCYTES # (AUTO) 0.7 X10'3 (0-0.9); MONOCYTES % (AUTO) 9.7 % (2-12); NEUTROPHILS # (AUTO) 5.5 X10'3 (1.8-7.7); NEUTROPHILS % (AUTO) 81.3 % (42-75); PLATELET COUNT 217 X10'3 (140-440); RED BLOOD COUNT 2.97 X10'6 (4.70-6.10); RED CELL DISTRIBUTION WIDTH 17.9 % (11.5-14.5); WHITE BLOOD COUNT 6.8 X10'3 (4.5-11.0)
[2023-11-30 02:39] LABS: ALANINE AMINOTRANSFERASE 36 U/L (12-78); ALBUMIN 1.9 G/DL (3.4-5.0); ALBUMIN/GLOBULIN RATIO 0.5 (1.1-1.5); ALKALINE PHOSPHATASE 114 IU/L (46-116); ANION GAP 0 (8-16); ASPARTATE AMINO TRANSFERASE 14 U/L (10-37); BILIRUBIN,TOTAL 0.2 MG/DL (0.1-1.0); BLOOD UREA NITROGEN 20 MG/DL (7-18); BUN/CREATININE RATIO 62.5 (10.0-20.0); CALCIUM 8.4 MG/DL (8.5-10.1); CHLORIDE 104 MMOL/L (99-107); CREATININE 0.32 MG/DL (0.60-1.10); GLUCOSE 186 MG/DL (70-104); MAGNESIUM 1.8 MG/DL (1.5-2.4); PHOSPHORUS 1.8 MG/DL (2.3-4.5); POTASSIUM 3.8 MMOL/L (3.5-5.1); SODIUM 140 MMOL/L (135-145); TOTAL CARBON DIOXIDE 35.9 MMOL/L (24-32); TOTAL PROTEIN 5.6 G/DL (6.4-8.2); eCRCL 277 ML/MIN; eGFR > 90 ML/MIN
[2023-11-30] MEDS: atorvastatin 20mg tablet PEG SCH (07:38)
[2023-11-30] MEDS: prednisone 10mg tablet PEG SCH (07:39)
[2023-11-30] MEDS: GABAPENTIN 300 MG/6 ML oral SOLUTION cup PEG SCH (07:40)
[2023-11-30] MEDS: acetaminophen 325mg/10.15ml oral unit dose solution PEG PRN (07:48)
[2023-11-30] MEDS: quetiapine 100mg tablet PEG SCH (20:17)
[2023-11-30] MEDS ORDERED: quetiapine 100mg tablet PEG SCH (21:00)
[2023-12-01] VITALS (38 sets, daily range): BP systolic 87–156; BP diastolic 52–91; PULSE 82–118; RESP 18–36; O2SAT 94–100
[2023-12-01 02:39] LABS: BASOPHILS % (AUTO) 0.5 % (0-1); EOSINOPHILS # (AUTO) 0.1 X10'3 (0-0.9); EOSINOPHILS % (AUTO) 2.6 % (0-6); HEMATOCRIT 25.7 % (42.0-52.0); HEMOGLOBIN 8.3 g/dl (14.0-17.9); LYMPHOCYTES # (AUTO) 0.4 X10'3 (1.1-4.8); LYMPHOCYTES % (AUTO) 7.6 % (21-51); MEAN CORPUSCULAR HEMOGLOBIN 30.5 PG (27.0-31.0); MEAN CORPUSCULAR HGB CONC 32.5 g/dL (33.0-36.5); MEAN CORPUSCULAR VOLUME 93.8 FL (78-98); MEAN PLATELET VOLUME 7.4 FL (7.4-10.4); MONOCYTES # (AUTO) 0.5 X10'3 (0-0.9); MONOCYTES % (AUTO) 9.4 % (2-12); NEUTROPHILS # (AUTO) 4.4 X10'3 (1.8-7.7); NEUTROPHILS % (AUTO) 79.9 % (42-75); PLATELET COUNT 249 X10'3 (140-440); RED BLOOD COUNT 2.74 X10'6 (4.70-6.10); WHITE BLOOD COUNT 5.5 X10'3 (4.5-11.0)
[2023-12-01 02:51] LABS: ALANINE AMINOTRANSFERASE 32 U/L (12-78); ALBUMIN 1.7 G/DL (3.4-5.0); ALBUMIN/GLOBULIN RATIO 0.5 (1.1-1.5); ALKALINE PHOSPHATASE 101 IU/L (46-116); ANION GAP 0 (8-16); ASPARTATE AMINO TRANSFERASE 19 U/L (10-37); BILIRUBIN,TOTAL 0.2 MG/DL (0.1-1.0); BLOOD UREA NITROGEN 20 MG/DL (7-18); BUN/CREATININE RATIO 74.1 (10.0-20.0); CALCIUM 8.4 MG/DL (8.5-10.1); CHLORIDE 105 MMOL/L (99-107); CREATININE 0.27 MG/DL (0.60-1.10); GLUCOSE 164 MG/DL (70-104); MAGNESIUM 1.7 MG/DL (1.5-2.4); PHOSPHORUS 1.8 MG/DL (2.3-4.5); POTASSIUM 3.7 MMOL/L (3.5-5.1); SODIUM 141 MMOL/L (135-145); TOTAL CARBON DIOXIDE 36.3 MMOL/L (24-32); TOTAL PROTEIN 5.3 G/DL (6.4-8.2); eCRCL 329 ML/MIN; eGFR > 90 ML/MIN
[2023-12-01] MEDS: QUEtiapine 25mg tablet PEG SCH (07:22)
[2023-12-02] VITALS (37 sets, daily range): BP systolic 88–163; BP diastolic 50–77; PULSE 82–108; RESP 12–42; O2SAT 94–100
[2023-12-02 02:48] LABS: BASOPHILS % (AUTO) 0.4 % (0-1); EOSINOPHILS # (AUTO) 0.1 X10'3 (0-0.9); EOSINOPHILS % (AUTO) 2.4 % (0-6); HEMATOCRIT 26.5 % (42.0-52.0); HEMOGLOBIN 8.6 g/dl (14.0-17.9); LYMPHOCYTES # (AUTO) 0.5 X10'3 (1.1-4.8); LYMPHOCYTES % (AUTO) 8.8 % (21-51); MEAN CORPUSCULAR HEMOGLOBIN 30.6 PG (27.0-31.0); MEAN CORPUSCULAR HGB CONC 32.4 g/dL (33.0-36.5); MEAN CORPUSCULAR VOLUME 94.3 FL (78-98); MEAN PLATELET VOLUME 7.3 FL (7.4-10.4); MONOCYTES # (AUTO) 0.5 X10'3 (0-0.9); NEUTROPHILS # (AUTO) 4.2 X10'3 (1.8-7.7); NEUTROPHILS % (AUTO) 78.4 % (42-75); PLATELET COUNT 256 X10'3 (140-440); RED BLOOD COUNT 2.81 X10'6 (4.70-6.10); RED CELL DISTRIBUTION WIDTH 18.4 % (11.5-14.5); WHITE BLOOD COUNT 5.4 X10'3 (4.5-11.0)
[2023-12-02 03:11] LABS: ALANINE AMINOTRANSFERASE 30 U/L (12-78); ALBUMIN 1.8 G/DL (3.4-5.0); ALBUMIN/GLOBULIN RATIO 0.5 (1.1-1.5); ALKALINE PHOSPHATASE 104 IU/L (46-116); ANION GAP 1 (8-16); ASPARTATE AMINO TRANSFERASE 25 U/L (10-37); BILIRUBIN,TOTAL 0.2 MG/DL (0.1-1.0); BLOOD UREA NITROGEN 22 MG/DL (7-18); BUN/CREATININE RATIO 64.7 (10.0-20.0); CALCIUM 8.8 MG/DL (8.5-10.1); CHLORIDE 105 MMOL/L (99-107); CREATININE 0.34 MG/DL (0.60-1.10); GLUCOSE 195 MG/DL (70-104); MAGNESIUM 1.9 MG/DL (1.5-2.4); PHOSPHORUS 2.5 MG/DL (2.3-4.5); POTASSIUM 3.8 MMOL/L (3.5-5.1); SODIUM 142 MMOL/L (135-145); TOTAL CARBON DIOXIDE 36.2 MMOL/L (24-32); TOTAL PROTEIN 5.4 G/DL (6.4-8.2); eCRCL 261 ML/MIN; eGFR > 90 ML/MIN
[2023-12-02] MEDS: prednisone 10mg tablet PEG SCH (07:25)
[2023-12-02] MEDS: tPA-cathflo 2 MG/2 ml IV flush IVF ONE (08:05)
[2023-12-02] MEDS ORDERED: TRIAMCINOLONE TP SCH (11:48)
[2023-12-02] MEDS ORDERED: NYSTATIN TP SCH (11:48)
[2023-12-02] MEDS: triamcinolone acet 0.1% cream 15gm TP SCH (14:43)
[2023-12-02] MEDS: NYSTATIN CREAM - 30GM TUBE TP SCH (14:43)
[2023-12-02] MEDS: HYDROcodone/acetaminophen 7.5MG/325MG per 15ml UD CUP PEG PRN (23:09)
[2023-12-03] VITALS (38 sets, daily range): BP systolic 115–147; BP diastolic 56–81; PULSE 83–104; RESP 9–32; O2SAT 92–99
[2023-12-03] MEDS: LidoCAINE 2% Topical Jelly 11mL syringe (UROJET) TOP ONE (01:26)
[2023-12-03 02:00] LABS: BASOPHILS % (AUTO) 0.6 % (0-1); EOSINOPHILS # (AUTO) 0.1 X10'3 (0-0.9); HEMATOCRIT 28.2 % (42.0-52.0); HEMOGLOBIN 9.1 g/dl (14.0-17.9); LYMPHOCYTES # (AUTO) 0.5 X10'3 (1.1-4.8); LYMPHOCYTES % (AUTO) 9.1 % (21-51); MEAN CORPUSCULAR HEMOGLOBIN 30.3 PG (27.0-31.0); MEAN CORPUSCULAR HGB CONC 32.3 g/dL (33.0-36.5); MEAN CORPUSCULAR VOLUME 93.8 FL (78-98); MEAN PLATELET VOLUME 7.5 FL (7.4-10.4); MONOCYTES # (AUTO) 0.6 X10'3 (0-0.9); MONOCYTES % (AUTO) 10.3 % (2-12); NEUTROPHILS # (AUTO) 4.3 X10'3 (1.8-7.7); PLATELET COUNT 241 X10'3 (140-440); RED BLOOD COUNT 3.01 X10'6 (4.70-6.10); WHITE BLOOD COUNT 5.5 X10'3 (4.5-11.0)
[2023-12-03 02:12] LABS: ALANINE AMINOTRANSFERASE 34 U/L (12-78); ALBUMIN/GLOBULIN RATIO 0.5 (1.1-1.5); ALKALINE PHOSPHATASE 121 IU/L (46-116); ANION GAP 3 (8-16); ASPARTATE AMINO TRANSFERASE 24 U/L (10-37); BILIRUBIN,TOTAL 0.2 MG/DL (0.1-1.0); BLOOD UREA NITROGEN 25 MG/DL (7-18); CALCIUM 8.8 MG/DL (8.5-10.1); CHLORIDE 102 MMOL/L (99-107); CREATININE 0.49 MG/DL (0.60-1.10); GLUCOSE 225 MG/DL (70-104); MAGNESIUM 1.7 MG/DL (1.5-2.4); POTASSIUM 3.8 MMOL/L (3.5-5.1); SODIUM 140 MMOL/L (135-145); TOTAL PROTEIN 5.8 G/DL (6.4-8.2); eCRCL 181 ML/MIN; eGFR > 90 ML/MIN
[2023-12-03] MEDS: prednisone 10mg tablet PEG SCH (07:22)
[2023-12-04] VITALS (33 sets, daily range): BP systolic 114–145; BP diastolic 55–75; PULSE 81–109; RESP 6–29; O2SAT 93–99
[2023-12-04 02:49] LABS: BASOPHILS % (AUTO) 0.5 % (0-1); EOSINOPHILS # (AUTO) 0.2 X10'3 (0-0.9); EOSINOPHILS % (AUTO) 2.9 % (0-6); HEMATOCRIT 28.3 % (42.0-52.0); HEMOGLOBIN 9.2 g/dl (14.0-17.9); LYMPHOCYTES # (AUTO) 0.6 X10'3 (1.1-4.8); LYMPHOCYTES % (AUTO) 10.6 % (21-51); MEAN CORPUSCULAR HEMOGLOBIN 30.6 PG (27.0-31.0); MEAN CORPUSCULAR HGB CONC 32.5 g/dL (33.0-36.5); MEAN CORPUSCULAR VOLUME 94.4 FL (78-98); MEAN PLATELET VOLUME 7.4 FL (7.4-10.4); MONOCYTES # (AUTO) 0.6 X10'3 (0-0.9); MONOCYTES % (AUTO) 10.2 % (2-12); NEUTROPHILS # (AUTO) 4.3 X10'3 (1.8-7.7); NEUTROPHILS % (AUTO) 75.8 % (42-75); PLATELET COUNT 250 X10'3 (140-440); RED CELL DISTRIBUTION WIDTH 17.9 % (11.5-14.5); WHITE BLOOD COUNT 5.7 X10'3 (4.5-11.0)
[2023-12-04 02:55] LABS: ALANINE AMINOTRANSFERASE 31 U/L (12-78); ALBUMIN/GLOBULIN RATIO 0.5 (1.1-1.5); ALKALINE PHOSPHATASE 93 IU/L (46-116); ANION GAP 1 (8-16); ASPARTATE AMINO TRANSFERASE 27 U/L (10-37); BILIRUBIN,TOTAL 0.3 MG/DL (0.1-1.0); BLOOD UREA NITROGEN 24 MG/DL (7-18); BUN/CREATININE RATIO 82.8 (10.0-20.0); CHLORIDE 102 MMOL/L (99-107); CREATININE 0.29 MG/DL (0.60-1.10); GLUCOSE 124 MG/DL (70-104); MAGNESIUM 1.7 MG/DL (1.5-2.4); PHOSPHORUS 3.2 MG/DL (2.3-4.5); POTASSIUM 3.9 MMOL/L (3.5-5.1); SODIUM 139 MMOL/L (135-145); TOTAL CARBON DIOXIDE 36.3 MMOL/L (24-32); TOTAL PROTEIN 5.7 G/DL (6.4-8.2); eCRCL 306 ML/MIN; eGFR > 90 ML/MIN
[2023-12-04] MEDS: predniSONE 5mg tablet PEG SCH (07:12)
[2023-12-04] MEDS: ALPRAZolam 0.25mg tablet PEG PRN (10:30)
[2023-12-05] VITALS (39 sets, daily range): BP systolic 99–133; BP diastolic 53–76; PULSE 56–108; RESP 16–30; O2SAT 66–100
[2023-12-05 02:15] LABS: BASOPHILS % (AUTO) 0.5 % (0-1); EOSINOPHILS # (AUTO) 0.2 X10'3 (0-0.9); EOSINOPHILS % (AUTO) 2.9 % (0-6); HEMOGLOBIN 9.5 g/dl (14.0-17.9); LYMPHOCYTES # (AUTO) 0.6 X10'3 (1.1-4.8); MEAN CORPUSCULAR HEMOGLOBIN 30.1 PG (27.0-31.0); MEAN CORPUSCULAR HGB CONC 31.7 g/dL (33.0-36.5); MEAN CORPUSCULAR VOLUME 94.9 FL (78-98); MEAN PLATELET VOLUME 7.5 FL (7.4-10.4); MONOCYTES # (AUTO) 0.6 X10'3 (0-0.9); MONOCYTES % (AUTO) 9.9 % (2-12); NEUTROPHILS % (AUTO) 77.7 % (42-75); PLATELET COUNT 267 X10'3 (140-440); RED BLOOD COUNT 3.16 X10'6 (4.70-6.10); RED CELL DISTRIBUTION WIDTH 18.6 % (11.5-14.5); WHITE BLOOD COUNT 6.4 X10'3 (4.5-11.0)
[2023-12-05 02:30] LABS: ALANINE AMINOTRANSFERASE 29 U/L (12-78); ALBUMIN/GLOBULIN RATIO 0.6 (1.1-1.5); ALKALINE PHOSPHATASE 105 IU/L (46-116); ANION GAP 5 (8-16); ASPARTATE AMINO TRANSFERASE 26 U/L (10-37); BILIRUBIN,TOTAL 0.3 MG/DL (0.1-1.0); BLOOD UREA NITROGEN 28 MG/DL (7-18); BUN/CREATININE RATIO 82.4 (10.0-20.0); CALCIUM 8.7 MG/DL (8.5-10.1); CHLORIDE 101 MMOL/L (99-107); CREATININE 0.34 MG/DL (0.60-1.10); GLUCOSE 200 MG/DL (70-104); POTASSIUM 3.8 MMOL/L (3.5-5.1); SODIUM 139 MMOL/L (135-145); TOTAL CARBON DIOXIDE 33.4 MMOL/L (24-32); TOTAL PROTEIN 5.6 G/DL (6.4-8.2); TRIGLYCERIDES 64 MG/DL (20-135); eCRCL 261 ML/MIN; eGFR > 90 ML/MIN
[2023-12-05 02:54] LABS: ANISOCYTOSIS 2+; PLATELET ESTIMATE NORMAL
[2023-12-05 02:58] LABS: ELLIPTOCYTES FEW; SCHISTOCYTES FEW
[2023-12-05 03:26] LABS: MAGNESIUM 1.7 MG/DL (1.5-2.4)
[2023-12-05] MEDS: ipratropium/albuterol 3ml nebule NEB PRN (07:20)
[2023-12-05] MEDS: ondansetron/PF 4mg/2ml inj IV PRN (07:34)
[2023-12-05] MEDS: vitamin A & D ointment-NF 1 APPLIC TUBE TP PRN (20:31)
[2023-12-06] VITALS (38 sets, daily range): BP systolic 92–157; BP diastolic 51–90; PULSE 79–106; RESP 12–34; O2SAT 93–99
[2023-12-06 02:19] LABS: BASOPHILS % (AUTO) 0.8 % (0-1); EOSINOPHILS # (AUTO) 0.2 X10'3 (0-0.9); EOSINOPHILS % (AUTO) 3.6 % (0-6); HEMATOCRIT 28.9 % (42.0-52.0); HEMOGLOBIN 9.4 g/dl (14.0-17.9); LYMPHOCYTES # (AUTO) 0.6 X10'3 (1.1-4.8); LYMPHOCYTES % (AUTO) 10.8 % (21-51); MEAN CORPUSCULAR HEMOGLOBIN 30.4 PG (27.0-31.0); MEAN CORPUSCULAR HGB CONC 32.5 g/dL (33.0-36.5); MEAN CORPUSCULAR VOLUME 93.3 FL (78-98); MEAN PLATELET VOLUME 7.2 FL (7.4-10.4); MONOCYTES # (AUTO) 0.6 X10'3 (0-0.9); MONOCYTES % (AUTO) 10.7 % (2-12); NEUTROPHILS # (AUTO) 4.5 X10'3 (1.8-7.7); NEUTROPHILS % (AUTO) 74.1 % (42-75); PLATELET COUNT 269 X10'3 (140-440); RED BLOOD COUNT 3.09 X10'6 (4.70-6.10); RED CELL DISTRIBUTION WIDTH 18.1 % (11.5-14.5)
[2023-12-06 02:36] LABS: ALANINE AMINOTRANSFERASE 25 U/L (12-78); ALBUMIN/GLOBULIN RATIO 0.5 (1.1-1.5); ALKALINE PHOSPHATASE 100 IU/L (46-116); ANION GAP 0 (8-16); ASPARTATE AMINO TRANSFERASE 24 U/L (10-37); BILIRUBIN,TOTAL 0.4 MG/DL (0.1-1.0); BLOOD UREA NITROGEN 27 MG/DL (7-18); BUN/CREATININE RATIO 84.4 (10.0-20.0); CHLORIDE 102 MMOL/L (99-107); CREATININE 0.32 MG/DL (0.60-1.10); GLUCOSE 87 MG/DL (70-104); MAGNESIUM 1.8 MG/DL (1.5-2.4); POTASSIUM 3.9 MMOL/L (3.5-5.1); SODIUM 138 MMOL/L (135-145); TOTAL CARBON DIOXIDE 35.9 MMOL/L (24-32); TOTAL PROTEIN 5.8 G/DL (6.4-8.2); TRIGLYCERIDES 37 MG/DL (20-135); eCRCL 277 ML/MIN; eGFR > 90 ML/MIN
[2023-12-06] MEDS: dextrose 50%-water 50ml dispensing syringe IV PRN ×2 (14:09→19:48)
[2023-12-06] MEDS: ringers solution, lacted 1,000 ML IV ONE (15:26)
[2023-12-07] VITALS (36 sets, daily range): BP systolic 96–127; BP diastolic 45–66; PULSE 86–99; RESP 16–37; O2SAT 93–99
[2023-12-07 01:56] LABS: BASOPHILS % (AUTO) 0.3 % (0-1); EOSINOPHILS # (AUTO) 0.2 X10'3 (0-0.9); HEMATOCRIT 25.5 % (42.0-52.0); HEMOGLOBIN 8.3 g/dl (14.0-17.9); LYMPHOCYTES # (AUTO) 0.5 X10'3 (1.1-4.8); LYMPHOCYTES % (AUTO) 8.6 % (21-51); MEAN CORPUSCULAR HEMOGLOBIN 30.5 PG (27.0-31.0); MEAN CORPUSCULAR HGB CONC 32.5 g/dL (33.0-36.5); MEAN PLATELET VOLUME 7.4 FL (7.4-10.4); MONOCYTES # (AUTO) 0.6 X10'3 (0-0.9); MONOCYTES % (AUTO) 10.1 % (2-12); NEUTROPHILS # (AUTO) 4.7 X10'3 (1.8-7.7); PLATELET COUNT 236 X10'3 (140-440); RED BLOOD COUNT 2.72 X10'6 (4.70-6.10); RED CELL DISTRIBUTION WIDTH 17.2 % (11.5-14.5)
[2023-12-07 02:12] LABS: ALANINE AMINOTRANSFERASE 19 U/L (12-78); ALBUMIN 1.7 G/DL (3.4-5.0); ALBUMIN/GLOBULIN RATIO 0.5 (1.1-1.5); ALKALINE PHOSPHATASE 84 IU/L (46-116); ANION GAP 4 (8-16); ASPARTATE AMINO TRANSFERASE 24 U/L (10-37); BILIRUBIN,TOTAL 0.3 MG/DL (0.1-1.0); BLOOD UREA NITROGEN 22 MG/DL (7-18); BUN/CREATININE RATIO 84.6 (10.0-20.0); CALCIUM 8.4 MG/DL (8.5-10.1); CHLORIDE 101 MMOL/L (99-107); CREATININE 0.26 MG/DL (0.60-1.10); GLUCOSE 130 MG/DL (70-104); MAGNESIUM 1.6 MG/DL (1.5-2.4); PHOSPHORUS 2.7 MG/DL (2.3-4.5); POTASSIUM 3.8 MMOL/L (3.5-5.1); SODIUM 137 MMOL/L (135-145); TOTAL CARBON DIOXIDE 32.5 MMOL/L (24-32); TOTAL PROTEIN 5.2 G/DL (6.4-8.2); eCRCL 341 ML/MIN; eGFR > 90 ML/MIN
[2023-12-08] VITALS (37 sets, daily range): BP systolic 105–153; BP diastolic 50–73; PULSE 79–111; RESP 15–33; O2SAT 93–98
[2023-12-08 02:22] LABS: BASOPHILS % (AUTO) 0.3 % (0-1); EOSINOPHILS # (AUTO) 0.2 X10'3 (0-0.9); EOSINOPHILS % (AUTO) 3.6 % (0-6); HEMATOCRIT 24.9 % (42.0-52.0); LYMPHOCYTES # (AUTO) 0.6 X10'3 (1.1-4.8); LYMPHOCYTES % (AUTO) 11.2 % (21-51); MEAN CORPUSCULAR HEMOGLOBIN 30.3 PG (27.0-31.0); MEAN CORPUSCULAR HGB CONC 32.2 g/dL (33.0-36.5); MEAN CORPUSCULAR VOLUME 94.3 FL (78-98); MEAN PLATELET VOLUME 7.3 FL (7.4-10.4); MONOCYTES # (AUTO) 0.6 X10'3 (0-0.9); NEUTROPHILS # (AUTO) 3.7 X10'3 (1.8-7.7); NEUTROPHILS % (AUTO) 72.9 % (42-75); PLATELET COUNT 230 X10'3 (140-440); RED BLOOD COUNT 2.64 X10'6 (4.70-6.10); RED CELL DISTRIBUTION WIDTH 17.1 % (11.5-14.5); WHITE BLOOD COUNT 5.1 X10'3 (4.5-11.0)
[2023-12-08 02:38] LABS: ALANINE AMINOTRANSFERASE 21 U/L (12-78); ALBUMIN 1.6 G/DL (3.4-5.0); ALBUMIN/GLOBULIN RATIO 0.4 (1.1-1.5); ALKALINE PHOSPHATASE 88 IU/L (46-116); ANION GAP -1 (8-16); ASPARTATE AMINO TRANSFERASE 20 U/L (10-37); BILIRUBIN,TOTAL 0.3 MG/DL (0.1-1.0); BLOOD UREA NITROGEN 14 MG/DL (7-18); CALCIUM 8.4 MG/DL (8.5-10.1); CHLORIDE 105 MMOL/L (99-107); CREATININE 0.25 MG/DL (0.60-1.10); GLUCOSE 146 MG/DL (70-104); POTASSIUM 3.7 MMOL/L (3.5-5.1); SODIUM 139 MMOL/L (135-145); TOTAL CARBON DIOXIDE 34.5 MMOL/L (24-32); TOTAL PROTEIN 5.2 G/DL (6.4-8.2); eCRCL 355 ML/MIN; eGFR > 90 ML/MIN
[2023-12-08] MEDS: nystatin 15 GM powder TP SCH (09:06)
[2023-12-08 13:15] LABS: BILIRUBIN,URINE SMALL (Neg); CLARITY,URINE CLOUDY (Clear); COLOR,URINE AMBER (Yellow); GLUCOSE, URINE NEGATIVE (Neg); KETONES,URINE NEGATIVE (Neg); LEUKOCYTE ESTERASE ,URINE NEGATIVE (Neg); NITRITES, URINE NEGATIVE (Neg); OCCULT BLOOD,URINE LARGE (Neg); PROTEIN,URINE 100 mg/dl (Neg)
[2023-12-08 13:19] LABS: UA COLLECTION TYPE FOLEY CATH
[2023-12-08 13:20] LABS: RBC,URINE TNTC /HPF (0-2); SQUAMOUS EPITHELIAL CELL,UR FEW /LPF (FEW)
[2023-12-08 13:21] LABS: CAL OXALATE CRYSTALS FEW /HPF (NEGATIVE)
[2023-12-08 13:22] LABS: BACTERIA,URINE NONE SEEN /HPF (Neg); WBC,URINE 0-4 /HPF (0-4)
[2023-12-09] VITALS (36 sets, daily range): BP systolic 105–141; BP diastolic 46–76; PULSE 1–103; RESP 0–33; O2SAT 65–99
[2023-12-09] MEDS: psyllium seed 5.8 gm packet (sugar-free) PO SCH (20:53)
[2023-12-10] VITALS (20 sets, daily range): BP systolic 105–138; BP diastolic 57–68; PULSE 76–102; RESP 14–30; O2SAT 95–99
== END 2023-12-10 14:00 | DRG 4 ==
LOC: ER 15:11 → ED HOLD 17:13 → EDBEDREQ 18:16 → PCU 3S 18:58 → CICU 2S 11-14 12:59
PROVIDERS: ADMIT Internal Medicine; ATTEND Internal Medicine
PROC: 5A0935A Assistance with Respiratory Ventilation, Less than 24 Consecutive Hours, High Flow/Velocity Cannula (ICD-10-PCS; 2023-11-09)
PROC: 5A0935A Assistance with Respiratory Ventilation, Less than 24 Consecutive Hours, High Flow/Velocity Cannula (ICD-10-PCS; 2023-11-10)
PROC: 5A09357 Assistance with Respiratory Ventilation, Less than 24 Consecutive Hours, Continuous Positive Airway Pressure (ICD-10-PCS; 2023-11-10)
PROC: 05HC33Z Insertion of Infusion Device into Left Basilic Vein, Percutaneous Approach (ICD-10-PCS; 2023-11-10)
PROC: 5A09357 Assistance with Respiratory Ventilation, Less than 24 Consecutive Hours, Continuous Positive Airway Pressure (ICD-10-PCS; 2023-11-11)
PROC: 5A0935A Assistance with Respiratory Ventilation, Less than 24 Consecutive Hours, High Flow/Velocity Cannula (ICD-10-PCS; 2023-11-12)
PROC: 5A09357 Assistance with Respiratory Ventilation, Less than 24 Consecutive Hours, Continuous Positive Airway Pressure (ICD-10-PCS; 2023-11-13)
PROC: 5A0935A Assistance with Respiratory Ventilation, Less than 24 Consecutive Hours, High Flow/Velocity Cannula (ICD-10-PCS; 2023-11-13)
PROC: 5A1955Z Respiratory Ventilation, Greater than 96 Consecutive Hours (ICD-10-PCS; principal; 2023-11-14)
PROC: 0BH17EZ Insertion of Endotracheal Airway into Trachea, Via Natural or Artificial Opening (ICD-10-PCS; 2023-11-14)
PROC: 02HV33Z Insertion of Infusion Device into Superior Vena Cava, Percutaneous Approach (ICD-10-PCS; 2023-11-14)
PROC: B548ZZA Ultrasonography of Superior Vena Cava, Guidance (ICD-10-PCS; 2023-11-14)
PROC: 5A0935A Assistance with Respiratory Ventilation, Less than 24 Consecutive Hours, High Flow/Velocity Cannula (ICD-10-PCS; 2023-11-14)
PROC: 5A09357 Assistance with Respiratory Ventilation, Less than 24 Consecutive Hours, Continuous Positive Airway Pressure (ICD-10-PCS; 2023-11-14)
PROC: 0B113F4 Bypass Trachea to Cutaneous with Tracheostomy Device, Percutaneous Approach (ICD-10-PCS; 2023-11-23)
PROC: 8E0W4CZ Robotic Assisted Procedure of Trunk Region, Percutaneous Endoscopic Approach (ICD-10-PCS; 2023-11-23)
PROC: 0D9640Z Drainage of Stomach with Drainage Device, Percutaneous Endoscopic Approach (ICD-10-PCS; 2023-11-23)
PROC: 5A09357 Assistance with Respiratory Ventilation, Less than 24 Consecutive Hours, Continuous Positive Airway Pressure (ICD-10-PCS; 2023-11-23)
PROC: 0BJ08ZZ Inspection of Tracheobronchial Tree, Via Natural or Artificial Opening Endoscopic (ICD-10-PCS; 2023-11-23)
PROC: 5A09357 Assistance with Respiratory Ventilation, Less than 24 Consecutive Hours, Continuous Positive Airway Pressure (ICD-10-PCS; 2023-11-28)
PROC: 5A09557 Assistance with Respiratory Ventilation, Greater than 96 Consecutive Hours, Continuous Positive Airway Pressure (ICD-10-PCS; 2023-11-30)
PROC: 5A09557 Assistance with Respiratory Ventilation, Greater than 96 Consecutive Hours, Continuous Positive Airway Pressure (ICD-10-PCS; 2023-11-30)
PROC: 5A09357 Assistance with Respiratory Ventilation, Less than 24 Consecutive Hours, Continuous Positive Airway Pressure (ICD-10-PCS; 2023-12-09)
DX: A40.3 Sepsis due to Streptococcus pneumoniae (principal); R65.21 Severe sepsis with septic shock; I21.4 Non-ST elevation (NSTEMI) myocardial infarction; D61.818 Other pancytopenia; J18.9 Pneumonia, unspecified organism; D84.89 Other immunodeficiencies; I82.621 Acute embolism and thrombosis of deep veins of right upper extremity; E87.0 Hyperosmolality and hypernatremia; D63.8 Anemia in other chronic diseases classified elsewhere; Z20.822 Contact with and (suspected) exposure to COVID-19; J80 Acute respiratory distress syndrome; C34.11 Malignant neoplasm of upper lobe, right bronchus or lung; E87.5 Hyperkalemia; N40.0 Benign prostatic hyperplasia without lower urinary tract symptoms; E87.70 Fluid overload, unspecified; E11.9 Type 2 diabetes mellitus without complications; M85.80 Other specified disorders of bone density and structure, unspecified site; Z92.3 Personal history of irradiation; Z87.891 Personal history of nicotine dependence
CPT/HCPCS: 36410; 36415; 36569; 36600; 71045; 71250; 76700; 76937; 76942; 80053; 80061; 80305; 81001; 82728; 82803; 82948; 83036; 83540; 83550; 83605; 83735; 83880; 84100; 84134; 84145; 84439; 84443; 84466; 84478; 84484; 85007; 85008; 85018; 85025; 85610; 85730; 86644; 86645; 86703; 86705; 86709; 86803; 87040; 87070; 87081; 87088; 87305; 87340; 87502; 87503; 87522; 87811; 93005; 93306; 93971; 94002; 94003; 94640; 94660; 94664; 94668; 94760; 97110; 97161; 97164; 97530; 97535; 99285; A4215; A4333; A4349; A4615; A4618; A4623; A4624; A4628; A4649; A5200; A6154; A6196; A6209; A6212; A6213; A6250; A6258; A6402; A6449; A6590; A7000; A7015; A7521; A7526; A9900; B4087; C1751; C1758; G0378; J0131; J0330; J0456; J0692; J0696; J1100; J1120; J1450; J1644; J1720; J1815; J1940; J2020; J2248; J2250; J2270; J2405; J2470; J2543; J2704; J2919; J2997; J3010; J3370; J3490; J7030; J7040; J7050; J7060; J7120; J7512; J7999; Q0163